=== PATIENT | female | born 1945 | race Caucasian/White ===

== ENCOUNTER 2016-03-04 10:59 | Emergency (ER) | payer MEDICARE, MEDICAID ==
[2016-03-04 12:03] LABS: BASO % 0.3 % (0.0-1.0); EOS # 0.1 K/mm3 (0.0-0.50); LARGE UNSTAINED CELL # 0.1 K/mm3 (0.0-0.4); LARGE UNSTAINED CELL % 2.3 % (0.0-4.0); LYMPH # 1.3 K/mm3 (1.5-4.5); LYMPH % 24.4 % (24.0-44.0); MEAN CORPUSCULAR HEMOGLOBIN 31.8 pg (27.0-33.0); MEAN CORPUSCULAR HGB CONC 34.2 g/dl (32.0-36.5); MEAN CORPUSCULAR VOLUME 92.9 fl (80.0-96.0); MONO # 0.3 K/mm3 (0.0-0.8); NEUTROPHILS # 3.4 K/mm3 (1.8-7.7); PLATELET COUNT, AUTOMATED 250 k/mm3 (150-450); RED CELL DISTRIBUTION WIDTH 11.7 % (11.5-14.5); WHITE BLOOD COUNT 5.2 K/mm3 (4.0-10.0)
[2016-03-04 12:24] LABS: ANION GAP 9 MEQ/L (8-16); BLOOD UREA NITROGEN 17 MG/DL (7-18); CALCIUM LEVEL 9.6 MG/DL (8.8-10.2); CARBON DIOXIDE LEVEL 26 MEQ/L (21-32); CHLORIDE LEVEL 105 MEQ/L (98-107); GLOMERULAR FILTRATION RATE > 60.0 (>45); GLUCOSE, FASTING 101 MG/DL (80-110); POTASSIUM SERUM 4.5 MEQ/L (3.5-5.1); SODIUM LEVEL 140 MEQ/L (136-145)
[2016-03-04] MEDS ORDERED: ISOVUE-370 76% 100ML VIAL (Q9967) As Ordered ONE (14:01)
[2016-03-04] MEDS ORDERED: ASPIRIN 81 MG CHEW TABLET As Ordered ONE (15:03)
--- NOTE | 2016-03-04 15:39 | REP ---
Clinical: Bilateral pain and swelling with an acute shortness of breath . Technique: Cummings scale and color Doppler evaluation using linear high frequency transducer. Findings: Ultrasound examination of the right and left lower extremity deep venous structures from the common femoral vein to the popliteal vein demonstrates normal compressibility flow and wave patterns in response to respiration and augmentation. There is no evidence for deep venous thrombosis. Impression: No evidence for deep venous thrombosis. Signed by Checo Mckeon MD 03/04/2016 03:30 P
[2016-03-04] MEDS ORDERED: ENOXAPARIN 60 MG/0.6 ML SYR (J1650) As Ordered ONE (17:06)
--- NOTE | 2016-03-04 18:00 | EDDOCDS ---
Nurse's Notes [facility] Name: Shelli Puente Age: 71 yrs Sex: Female : 1945 Arrival Date: 03/04/2016 Time: 10:59 Bed 10 Private MD: Deion Sandoval A. Diagnosis: Other chest pain Presentation: 03/04 11:10 Presenting complaint: EMS states: patient was having chest pain while working at [employer]. Aspirin was not taken prior to arrival. Suicide/Homicide risk assessment- the patient denies having any suicidal and/or homicidal ideations and does not present with any other emotional, behavioral or mental health complaints. Status: Patient is not a service center specialist or dependent. Transition of care: patient was not received from another setting of care. Care prior to arrival: See EMS report. Saline lock initiated. Glucose check. 115. 11:10 Acuity: KAYLEE Level 2 [facility] 11:10 Method Of Arrival: Ambulance [facility] 11:27 Adult Sepsis Screening: The patient does not have new or worsening altered mentation. [facility] Patient's respiratory rate is less than 22. Systolic blood pressure is greater than 100. Patient has a qSOFA score of 0- Negative Sepsis Screen. Triage Assessment: 11:27 General: Appears comfortable, well developed, well nourished, well groomed, Behavior is kcs cooperative, pleasant. Pain: Denies pain. The patient is triaged at the bedside. See Assessment in Nurses Notes section of ED record. Neurological: Level of Consciousness is awake, alert. Cardiovascular: Rhythm is sinus rhythm No ectopy. Cardiovascular: very minimal bilasteral ankle swelling. Respiratory: Airway is patent Respiratory effort is even, unlabored, Respiratory pattern is regular, symmetrical, Breath sounds are clear bilaterally. Derm: Skin is intact, is healthy with good turgor, Skin is dry, Skin is normal. Historical: - Allergies: No known drug Allergies; - Home Meds: 1. Calcium/Vitamin D 600/400 mg daily 2. levothyroxine 75 mcg Oral tab 1 tab once daily 3. Amadeo Briceño Ultra Strength Topical twice a day as needed - PMHx: Thyroid problem; Mental retardation; - Social history: Smoking status: Patient states was never smoker of tobacco. No barriers to communication noted, The patient speaks fluent Bangladeshi. - Family history: Not pertinent. - : The pt / caregiver states he / she is not on anticoagulants. Home medication list is obtained from the facility MAR. - Exposure Risk Screening:: None identified. Screenin:54 Screening information is obtained from family members. Fall risk: No risks identified. kcs Assistance ADL's: requires no assistance with activities of daily living. Assistance ADL's: Requires assistance with meal preparation, this assistance is provided by residence staff, medication administration, assistance is provided by residence staff. Abuse/DV Screen: The patient / caregiver reports he/she is: not in a situation that causes fear, pain or injury. Nutritional screening: No deficits noted. Advance Directives: Unable to assess Advance Directive status due to pt condition. home support is adequate. Assessment: 12:43 Reassessment: Patient sitting up on stretcher - talking with family. Smiling and kcs pleasant. Denies pain.. 13:48 General: Patient eating lunch. kcs 15:59 Reassessment: Patient repositioned on stretcher. Still pain free. Pleasant and kcs cooperative. Respirations easy. Color = pink. Warm compresses to LAC. senior communications engineer = RSR. [facility] staff member at bedside.. 17:52 Reassessment: patient denies any pain or shortness of breath. [facility] staff aware that kcs patient is to return tomorrow for CT scan and re-eval.. General: Appears comfortable, well developed, well nourished, well groomed, Behavior is cooperative, pleasant. Pain: Denies pain. Neurological: Level of Consciousness is awake, alert. Cardiovascular: Rhythm is sinus rhythm No ectopy. Respiratory: Airway is patent Respiratory effort is even, unlabored, Respiratory pattern is regular, symmetrical. Derm: Skin is intact, is healthy with good turgor, Skin is dry, Skin is normal. 17:54 Reassessment: LAC with very slight firmness - no redness noted. Patient has had warm kcs compresses and arm elevated since return from CT.. Vital Signs: 11:14 BP 130 / 78 RA Sitting (auto/lg); Pulse 68; Resp 18; Temp 97.6(TE); Pulse Ox 97% on jrd R/A; Weight 79.38 kg (R); Height 5 ft. 4 in. (162.56 cm) (R); 11:28 BP 150 / 79 (auto/); kcs 11:28 Pulse 64 MON; Pulse Ox 99% ; kcs 12:28 BP 120 / 61 (auto/); kcs 12:29 Pulse 64 MON; Pulse Ox 98% ; kcs 14:53 BP 132 / 63 (auto/); kcs 14:53 Pulse 80 MON; Pulse Ox 97% ; kcs 15:23 BP 133 / 63 (auto/); kcs 15:23 Pulse 74 MON; Pulse Ox 98% ; kcs 15:53 BP 129 / 63 (auto/); kcs 15:53 Pulse 66 MON; Pulse Ox 97% ; kcs 16:23 BP 146 / 65 (auto/); kcs 16:23 Pulse 68 MON; Pulse Ox 94% ; kcs 16:53 BP 138 / 69 (auto/); kcs 16:53 Pulse 66 MON; Pulse Ox 96% ; kcs 17:23 BP 125 / 73 (auto/); kcs 17:23 Pulse 70 MON; Pulse Ox 97% ; kcs 17:54 BP 109 / 65; Pulse 65; Resp 20; Temp 98.0(O); Pulse Ox 95% on R/A; Pain 0/10; kcs 11:14 Body Mass Index 30.04 (79.38 kg, 162.56 cm) jrd Vitals: 11:27 Log In Time N/A - ambulance arrival. kcs ED Course: 11:00 Patient visited by Shelli Mckeon, Business Office Coordinator. lbd 11:00 Patient moved to Waiting lbd 11:01 Deion Sandoval is Private Physician. lbd 11:01 Patient moved to 10 dy 11:12 Triage Initiated kcs 11:13 EKG done. (by ED staff). Reviewed by Antonella Youssef MD. jrd 11:15 Patient visited by Levi Schultz PCA. jrd 11:17 Antonella Youssef MD is Attending Physician. sd1 11:17 Patient visited by Antonella Youssef MD. sd1 11:30 Maintain field IV. Gauge & site: #20 LAC. kcs 11:33 Patient visited by Alex Miranda PCA. jlf 11:51 Basic Metabolic Profile Sent. kcs 11:51 CBC with Diff Sent. kcs 11:51 Cardiac Injury Profile Sent. kcs 11:51 Troponin Sent. kcs 12:03 [facility] [place] Agreement was scanned into [employer] and attached to record. jp5 12:12 Patient visited by Alex Miranda PCA. jlf 12:54 Patient visited by Alex Miranda PCA. jlf 13:40 Patient visited by Alex Miranda PCA. jlf 14:14 Patient visited by Alex Miranda PCA. jlf 15:03 Patient visited by Levi Schultz PCA. jrd 15:03 EKG done. (by ED staff). Reviewed by Antonella Youssef MD. jrd 15:10 Patient moved to Ultrasound am17 15:19 Discontinued IV lock intact, bleeding controlled, pressure dressing applied, No kc3 redness/swelling at site. IV dc'd r/t iv infiltration during CT contrast administration. Dr. Mckeon and Dr. Nieves made aware. New orders placed and performed. Pt tolerated well. 15:20 Inserted saline lock: 20 gauge in right antecubital area and blood collected. The kc3 patient tolerated the procedure well. 15:27 Patient moved to 10 am17 16:13 US Lower Extremities Bilateral R/O DVT Returned. EDMS 16:44 Patient visited by Alex Miranda PCA. jlf 17:01 Linnea Agustin is Referral Physician. sd1 17:54 The patient / caregiver is instructed regarding the plan of care and ED course. Cardiac kcs monitor on. Pulse ox on. NIBP on. 17:54 Discontinued lock intact, bleeding controlled, pressure dressing applied, No kcs redness/swelling at site. No procedures done that require assistance. Administered Medications: 15:00 Drug: Aspirin 81 mg [aspirin 81 mg chewable tablet (1 tabs)] Route: PO; kc3 17:13 Drug: Enoxaparin (1.5 mg/kg) 119.07 mg {Co-Signature: víctor (Fadi Thurman RN).} {Note: kcs 60 mg given SC in each side of abdomen.} Route: Sub-Q; Site: abdomen; Order Results: Lab Order: Basic Metabolic Profile; SPEC'M 03/04/16 11:48 Test: GLUCOSE, FASTING; Value: 101; Range: 80-110; Units: MG/DL; Status: F Test: BLOOD UREA NITROGEN; Value: 17; Range: 7-18; Units: MG/DL; Status: F Test: CREATININE FOR GFR; Value: 0.70; Range: 0.55-1.02; Units: MG/DL; Status: F Test: GLOMERULAR FILTRATION RATE; Value: > 60.0; Range: >45; Status: F Test: SODIUM LEVEL; Value: 140; Range: 136-145; Units: MEQ/L; Status: F Test: POTASSIUM SERUM; Value: 4.5; Range: 3.5-5.1; Units: MEQ/L; Status: F Test: CHLORIDE LEVEL; Value: 105; Range: 98-107; Units: MEQ/L; Status: F Test: CARBON DIOXIDE LEVEL; Value: 26; Range: 21-32; Units: MEQ/L; Status: F Test: ANION GAP; Value: 9; Range: 8-16; Units: MEQ/L; Status: F Test: CALCIUM LEVEL; Value: 9.6; Range: 8.8-10.2; Units: MG/DL; Status: F Test Note: ; Units are mL/min/1.73 m2 Chronic Kidney Disease Staging per NKF: Stage I & II GFR >=60 Normal to Mildly Decreased Stage III GFR 30-59 Moderately Decreased Stage IV GFR 15-29 Severely Decreased Stage V GFR <15 Very Little GFR Left ESRD GFR <15 on AIR DIRECTOR Lab Order: CBC with Diff; SPEC'M 03/04/16 11:48 Test: WHITE BLOOD COUNT; Value: 5.2; Range: 4.0-10.0; Units: K/mm3; Status: F Test: RED BLOOD COUNT; Value: 4.45; Range: 4.00-5.40; Units: M/mm3; Status: F Test: HEMOGLOBIN; Value: 14.2; Range: 12.0-16.0; Units: g/dl; Status: F Test: HEMATOCRIT; Value: 41.4; Range: 36.0-47.0; Units: %; Status: F Test: MEAN CORPUSCULAR VOLUME; Value: 92.9; Range: 80.0-96.0; Units: fl; Status: F Test: MEAN CORPUSCULAR HEMOGLOBIN; Value: 31.8; Range: 27.0-33.0; Units: pg; Status: F Test: MEAN CORPUSCULAR HGB CONC; Value: 34.2; Range: 32.0-36.5; Units: g/dl; Status: F Test: RED CELL DISTRIBUTION WIDTH; Value: 11.7; Range: 11.5-14.5; Units: %; Status: F Test: PLATELET COUNT, AUTOMATED; Value: 250; Range: 150-450; Units: k/mm3; Status: F Test: NEUTROPHILS %; Value: 65.0; Range: 36.0-66.0; Units: %; Status: F Test: LYMPH %; Value: 24.4; Range: 24.0-44.0; Units: %; Status: F Test: MONO %; Value: 6.0; Range: 0.0-5.0; Abnormal: Above high normal; Units: %; Status: F Test: EOS %; Value: 2.0; Range: 0.0-3.0; Units: %; Status: F Test: BASO %; Value: 0.3; Range: 0.0-1.0; Units: %; Status: F Test: LARGE UNSTAINED CELL %; Value: 2.3; Range: 0.0-4.0; Units: %; Status: F Test: NEUTROPHILS #; Value: 3.4; Range: 1.8-7.7; Units: K/mm3; Status: F Test: LYMPH #; Value: 1.3; Range: 1.5-4.5; Abnormal: Below low normal; Units: K/mm3; Status: F Test: MONO #; Value: 0.3; Range: 0.0-0.8; Units: K/mm3; Status: F Test: EOS #; Value: 0.1; Range: 0.0-0.50; Units: K/mm3; Status: F Test: BASO #; Value: 0.0; Range: 0.0-0.2; Units: K/mm3; Status: F Test: LARGE UNSTAINED CELL #; Value: 0.1; Range: 0.0-0.4; Units: K/mm3; Status: F Lab Order: Cardiac Injury Profile; SPEC'M 03/04/16 11:48 Test: CPK CREATINE PHOSPHOKINASE; Value: 81; Range: 26-192; Units: U/L; Status: F Test: CK-MB VALUE MASS; Value: 1.2; Range: 0.0-3.6; Units: NG/ML; Status: F Test: MB/CK RELATIVE INDEX; Value: 1.48; Range: < OR =4; Status: F Test Note: ; DIAGNOSIS CRITERIA MMB ng/ml Relative Index (RI) NON-AMI < or = 5 N/A CUMMINGS ZONE > 5 < or = 4 AMI > 5 > 4 Lab Order: Troponin; SPEC' 03/04/16 11:48 Test: TROPONIN I; Value: < 0.02; Range: < 0.10; Units: NG/ML; Status: F Test Note: ; Troponin I Reference Interval for [email or web address] LOCI: 99th Percentile= 0.00-0.045 ng/ml Risk Stratification: <= 0.10 ng/ml Decreased Risk for Adverse Clinical Events. 0.10-1.50 ng/ml Increased Risk for Adverse Clinical Events. Evaluation of additional criterion and/or repeat testing in 2-6 hours is suggested to rule out myocardial damage. >= 1.50 ng/ml Indicative of Myocardial Injury. Lab Order: D-Dimer Quant; SPEC' 03/04/16 11:48 Test: D-DIMER QUANT; Value: 535.4; Range: <500; Abnormal: Above high normal; Units: ng/ml; Status: F Lab Order: CARDIAC MARKER PANEL; [facility]' 03/04/16 15:03 Test: CPK CREATINE PHOSPHOKINASE; Value: 70; Range: 26-192; Units: U/L; Status: F Test: CK-MB VALUE MASS; Value: 1.0; Range: 0.0-3.6; Units: NG/ML; Status: F Test: MB/CK RELATIVE INDEX; Value: 1.42; Range: < OR =4; Status: F Test: TROPONIN I; Value: < 0.02; Range: < 0.10; Units: NG/ML; Status: F Test Note: ; DIAGNOSIS CRITERIA MMB ng/ml Relative Index (RI) NON-AMI < or = 5 N/A CUMMINGS ZONE > 5 < or = 4 AMI > 5 > 4 Radiology Order: US Lower Extremities Bilateral R/O DVT Test: US Lower Extremities Bilateral R/O DVT REASON FOR EXAMINATION: sob swelling; Clinical: Bilateral pain and swelling with an acute shortness of breath .; ; Technique: Cummings scale and color Doppler evaluation using linear high frequency; transducer.; ; Findings:; Ultrasound examination of the right and left lower extremity deep venous; structures from the common femoral vein to the popliteal vein demonstrates normal; compressibility flow and wave patterns in response to respiration and; augmentation. There is no evidence for deep venous thrombosis.; ; Impression:; No evidence for deep venous thrombosis.; ; ; Signed by; Checo Mckeon MD 03/04/2016 03:30 P; Outcome: 17:02 Discharge ordered by Provider. sd1 17:54 Discharge Assessment: Patient awake, alert and oriented x 3. No cognitive and/or kcs functional deficits noted. Patient verbalized understanding of disposition instructions. Patient awake and alert. patient administered narcotics - no. The following High Risk Discharge criteria are identified: None. Discharged to home via wheelchair, [facility] staff. Condition: stable. Discharge instructions given to patient, Instructed on discharge instructions, follow up and referral plans. Use of warm compresses to the affected area, Demonstrated understanding of instructions, Pt was receptive of discharge instructions/ teaching. CT Study completed. Ultrasound Study completed. Property sent home with patient. 17:59 Patient left the ED. kcs Signatures: Dispatcher [employer] EDMS Antonella Youssef MD MD sd1 Renita Vergara, RN RN kcs Shelli Mckeon, Business Office Coordinator Unit lbd Perez Hoffman, RN RN Alex Guajardo, SMOOTH [employer]UCCO RESURFACER SMOOTH STUCCO RESURFACER jlNilsa López am17 Levi Schultz, SMOOTH STUCCO RESURFACER SMOOTH STUCCO RESURFACER jrd Joseph Moulton jp5 Anuja Powell,CHEVY RN kc3 Fadi hanb MTDD
--- NOTE | 2016-03-04 18:00 | EDDOCDS ---
Physician Documentation [facility] Name: Shelli Puente Age: 71 yrs Sex: Female : 1945 Arrival Date: 03/04/2016 Time: 10:59 Bed 10 Private MD: Deion Sandoval A. Disposition: 03/04/16 17:02 Discharged to Home/Self Care. Impression: Other chest pain. - Condition is Stable. - Discharge Instructions: Angina Pectoris, Nonspecific Chest Pain, Chest Wall Pain, Costochondritis. - Work Release Form - 1 day, Medication Reconciliation, Local Pharmacy Hours form. - Follow up: Linnea Agustin; When: Call to arrange an appointment. Follow up: Emergency Department; When: Tomorrow. - Problem is new. - Symptoms are resolved. Historical: - Allergies: No known drug Allergies; - Home Meds: 1. Calcium/Vitamin D 600/400 mg daily 2. levothyroxine 75 mcg Oral tab 1 tab once daily 3. Amadeo Briceño Ultra Strength Topical twice a day as needed - PMHx: Thyroid problem; Mental retardation; - Social history: Smoking status: Patient states was never smoker of tobacco. No barriers to communication noted, The patient speaks fluent Azeri. - Family history: Not pertinent. - : The pt / caregiver states he / she is not on anticoagulants. Home medication list is obtained from the facility APR. - Exposure Risk Screening:: None identified. Vital Signs: 03/04 11:14 BP 130 / 78 RA Sitting (auto/lg); Pulse 68; Resp 18; Temp 97.6(TE); Pulse Ox 97% on jrd R/A; Weight 79.38 kg / 175 lbs (R); Height 5 ft. 4 in. (162.56 cm) (R); 11:28 BP 150 / 79 (auto/); kcs 11:28 Pulse 64 MON; Pulse Ox 99% ; kcs 12:28 BP 120 / 61 (auto/); kcs 12:29 Pulse 64 MON; Pulse Ox 98% ; kcs 14:53 BP 132 / 63 (auto/); kcs 14:53 Pulse 80 MON; Pulse Ox 97% ; kcs 15:23 BP 133 / 63 (auto/); kcs 15:23 Pulse 74 MON; Pulse Ox 98% ; kcs 15:53 BP 129 / 63 (auto/); kcs 15:53 Pulse 66 MON; Pulse Ox 97% ; kcs 16:23 BP 146 / 65 (auto/); kcs 16:23 Pulse 68 MON; Pulse Ox 94% ; kcs 16:53 BP 138 / 69 (auto/); kcs 16:53 Pulse 66 MON; Pulse Ox 96% ; kcs 17:23 BP 125 / 73 (auto/); kcs 17:23 Pulse 70 MON; Pulse Ox 97% ; kcs 17:54 BP 109 / 65; Pulse 65; Resp 20; Temp 98.0(O); Pulse Ox 95% on R/A; Pain 0/10; kcs 11:14 Body Mass Index 30.04 (79.38 kg, 162.56 cm) jrd MDM: 11:01 [employer] Crewmember/Pulse Ox/q 30 min VS ordered. sd1 11:01 IV Saline Lock ordered. sd1 11:01 Rhythm Strip to chart ordered. sd1 11:01 Undress patient appropriately for examination ordered. sd1 11:03 ECG WITH READING ER PHYS+CARDIAG ordered. EDMS 11:03 Basic Metabolic Profile Ordered. EDMS 11:03 CBC with Diff Ordered. EDMS 11:03 Cardiac Injury Profile Ordered. EDMS 11:03 Troponin Ordered. EDMS 11:03 portable chest Ordered. EDMS 12:03 [facility] Payment Agreement was scanned into [employer] and attached to record. jp5 12:03 Financial registration complete. jp5 12:27 CBC with Diff Reviewed. sd1 12:27 Basic Metabolic Profile Reviewed. sd1 12:27 Cardiac Injury Profile Reviewed. sd1 12:27 Troponin Reviewed. sd1 12:39 Redraw CIP &Troponin (put time in details section) ordered. sd1 12:39 Repeat EKG (put time details section) ordered. sd1 12:39 REGULAR+DIET ordered. EDMS 12:39 D-Dimer Quant Ordered. EDMS 12:49 Repeat EKG (put time details section) complete. lbd 12:49 Redraw CIP &Troponin (put time in details section) complete. lbd 12:52 ECG WITH READING ER PHYS ordered. EDMS 12:52 CARDIAC MARKER PANEL Ordered. EDMS 13:48 D-Dimer Quant Reviewed. sd1 13:57 CT Chest Angio R/O PE Ordered. EDMS 14:20 Aspirin Chewable Tablet 81 mg PO once ordered. sd1 14:57 Misc. Nursing Order ordered. sd1 15:05 US Lower Extremities Bilateral R/O DVT Ordered. EDMS 15:51 CARDIAC MARKER PANEL Reviewed. sd1 16:41 US Lower Extremities Bilateral R/O DVT Reviewed. sd1 16:48 Enoxaparin (1.5 mg/kg) 1.5 mg/kg Sub-Q once; Ensure no Heparin in past 6hrs. lovenox sd1 120mg SQ ordered. Administered Medications: 15:00 Drug: Aspirin 81 mg [aspirin 81 mg chewable tablet (1 tabs)] Route: PO; kc3 17:13 Drug: Enoxaparin (1.5 mg/kg) 119.07 mg {Co-Signature: jmb (Fadi Thurman RN).} {Note: kcs 60 mg given SC in each side of abdomen.} Route: Sub-Q; Site: abdomen; Signatures: Dispatcher [employer] EDMS Antonella Youssef MD MD sd1 Renita Vergara, RN RN kcs Shelli Mckeon, Consumer Safety Officer Unit lbd Joseph Moulton jp5 Anuja Powell RN kc3 Fadi renee The chart was reviewed and I authenticate all verbal orders and agree with the evaluation and treatment provided.Corrections: (The following items were deleted from the chart) 11:45 11:03 ECG WITH READING ER PHYS+CARDIAG ordered. EDMS EDMS Attachments: 12:03 [facility] Payment Agreement jp5 MTDD
--- NOTE | 2016-03-04 19:59 | ECGEPIP ---
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
--- NOTE | 2016-03-04 20:04 | ECGEPIP ---
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
--- NOTE | 2016-03-04 22:38 | REP ---
AP portable upright chest radiograph 03/04/2016 Indication: Chest pain Comparison: Cardiomediastinal silhouette is normal. Lungs are clear bilaterally. There are moderate to advanced degenerative changes in thoracic spine, with lateral bridging marginal osteophytes at multiple levels. Soft tissues are within normal limits. Impression: No acute cardiopulmonary process. Moderate to advanced degenerative changes in the thoracic spine Signed by Kathryn Hernandez MD 03/04/2016 10:29 P
--- NOTE | 2016-03-06 19:00 | EDDOCDS ---
Physician Documentation [facility] Name: Shelli Puente Age: 71 yrs Sex: Female : 1945 Arrival Date: 03/04/2016 Time: 10:59 Bed 10 Private MD: Deion Sandoval A. Disposition: 03/04/16 17:02 Discharged to Home/Self Care. Impression: Other chest pain. - Condition is Stable. - Discharge Instructions: Angina Pectoris, Nonspecific Chest Pain, Chest Wall Pain, Costochondritis. - Work Release Form - 1 day, Medication Reconciliation, Local Pharmacy Hours form. - Follow up: Linnea Agustin; When: Call to arrange an appointment. Follow up: Emergency Department; When: Tomorrow. - Problem is new. - Symptoms are resolved. Historical: - Allergies: No known drug Allergies; - Home Meds: 1. Calcium/Vitamin D 600/400 mg daily 2. levothyroxine 75 mcg Oral tab 1 tab once daily 3. Amadeo Briceño Ultra Strength Topical twice a day as needed - PMHx: Thyroid problem; Mental retardation; - Social history: Smoking status: Patient states was never smoker of tobacco. No barriers to communication noted, The patient speaks fluent Italian. - Family history: Not pertinent. - : The pt / caregiver states he / she is not on anticoagulants. Home medication list is obtained from the facility APR. - Exposure Risk Screening:: None identified. Vital Signs: 03/04 11:14 BP 130 / 78 RA Sitting (auto/lg); Pulse 68; Resp 18; Temp 97.6(TE); Pulse Ox 97% on jrd R/A; Weight 79.38 kg / 175 lbs (R); Height 5 ft. 4 in. (162.56 cm) (R); 11:28 BP 150 / 79 (auto/); kcs 11:28 Pulse 64 MON; Pulse Ox 99% ; kcs 12:28 BP 120 / 61 (auto/); kcs 12:29 Pulse 64 MON; Pulse Ox 98% ; kcs 14:53 BP 132 / 63 (auto/); kcs 14:53 Pulse 80 MON; Pulse Ox 97% ; kcs 15:23 BP 133 / 63 (auto/); kcs 15:23 Pulse 74 MON; Pulse Ox 98% ; kcs 15:53 BP 129 / 63 (auto/); kcs 15:53 Pulse 66 MON; Pulse Ox 97% ; kcs 16:23 BP 146 / 65 (auto/); kcs 16:23 Pulse 68 MON; Pulse Ox 94% ; kcs 16:53 BP 138 / 69 (auto/); kcs 16:53 Pulse 66 MON; Pulse Ox 96% ; kcs 17:23 BP 125 / 73 (auto/); kcs 17:23 Pulse 70 MON; Pulse Ox 97% ; kcs 17:54 BP 109 / 65; Pulse 65; Resp 20; Temp 98.0(O); Pulse Ox 95% on R/A; Pain 0/10; kcs 11:14 Body Mass Index 30.04 (79.38 kg, 162.56 cm) jrd MDM: 11:01 Enrollment Consultant/Pulse Ox/q 30 min VS ordered. sd1 11:01 IV Saline Lock ordered. sd1 11:01 Rhythm Strip to chart ordered. sd1 11:01 Undress patient appropriately for examination ordered. sd1 11:03 ECG WITH READING ER PHYS+CARDIAG ordered. EDMS 11:03 Basic Metabolic Profile Ordered. EDMS 11:03 CBC with Diff Ordered. EDMS 11:03 Cardiac Injury Profile Ordered. EDMS 11:03 Troponin Ordered. EDMS 11:03 portable chest Ordered. EDMS 12:03 [facility] Payment Agreement was scanned into [employer] and attached to record. jp5 12:03 Financial registration complete. jp5 12:27 CBC with Diff Reviewed. sd1 12:27 Basic Metabolic Profile Reviewed. sd1 12:27 Cardiac Injury Profile Reviewed. sd1 12:27 Troponin Reviewed. sd1 12:39 Redraw CIP &Troponin (put time in details section) ordered. sd1 12:39 Repeat EKG (put time details section) ordered. sd1 12:39 REGULAR+DIET ordered. EDMS 12:39 D-Dimer Quant Ordered. EDMS 12:49 Repeat EKG (put time details section) complete. lbd 12:49 Redraw CIP &Troponin (put time in details section) complete. lbd 12:52 ECG WITH READING ER PHYS ordered. EDMS 12:52 CARDIAC MARKER PANEL Ordered. EDMS 13:48 D-Dimer Quant Reviewed. sd1 13:57 CT Chest Angio R/O PE Ordered. EDMS 14:20 Aspirin Chewable Tablet 81 mg PO once ordered. sd1 14:57 Misc. Nursing Order ordered. sd1 15:05 US Lower Extremities Bilateral R/O DVT Ordered. EDMS 15:51 CARDIAC MARKER PANEL Reviewed. sd1 16:41 US Lower Extremities Bilateral R/O DVT Reviewed. sd1 16:48 Enoxaparin (1.5 mg/kg) 1.5 mg/kg Sub-Q once; Ensure no Heparin in past 6hrs. lovenox sd1 120mg SQ ordered. 03/05 10:58 T-Sheet-- Draft Copy was scanned into [employer] and attached to record. gb 10:58 ECG/EKG was scanned into [employer] and attached to record. gb 10:58 Trend VS was scanned into [employer] and attached to record. gb 10:59 Rhythm Strip was scanned into [employer] and attached to record. gb Administered Medications: 03/04 15:00 Drug: Aspirin 81 mg [aspirin 81 mg chewable tablet (1 tabs)] Route: PO; kc3 17:13 Drug: Enoxaparin (1.5 mg/kg) 119.07 mg {Co-Signature: víctor (Fadi Thurman RN).} {Note: kcs 60 mg given SC in each side of abdomen.} Route: Sub-Q; Site: abdomen; Signatures: Dispatcher [employer] EDMS Antonella Youssef MD MD sd1 Renita Vergara, RN RN kcs Shelli Mckeon, Gravity Prospecting Observer Unit lbd Lyly Webb, Reg Reg Joseph Alva jp5 Anuja Powell RN kc3 Fadi renee The chart was reviewed and I authenticate all verbal orders and agree with the evaluation and treatment provided.Corrections: (The following items were deleted from the chart) 11:45 11:03 ECG WITH READING ER PHYS+CARDIAG ordered. EDMS EDMS Attachments: 12:03 [place] [place] Agreement jp5 03/05 10:58 T-Sheet-- Draft Copy gb 10:58 ECG/EKG gb Chart Complete MTDD
--- NOTE | 2016-03-06 19:00 | EDDOCDS ---
Physician Documentation [facility] Name: Shelli Puente Age: 71 yrs Sex: Female : 1945 Arrival Date: 03/04/2016 Time: 10:59 Bed 10 Private MD: Deion Sandoval A. Disposition: 03/04/16 17:02 Discharged to Home/Self Care. Impression: Other chest pain. - Condition is Stable. - Discharge Instructions: Angina Pectoris, Nonspecific Chest Pain, Chest Wall Pain, Costochondritis. - Work Release Form - 1 day, Medication Reconciliation, Local Pharmacy Hours form. - Follow up: Linnea Agustin; When: Call to arrange an appointment. Follow up: Emergency Department; When: Tomorrow. - Problem is new. - Symptoms are resolved. Historical: - Allergies: No known drug Allergies; - Home Meds: 1. Calcium/Vitamin D 600/400 mg daily 2. levothyroxine 75 mcg Oral tab 1 tab once daily 3. Amadeo Briceño Ultra Strength Topical twice a day as needed - PMHx: Thyroid problem; Mental retardation; - Social history: Smoking status: Patient states was never smoker of tobacco. No barriers to communication noted, The patient speaks fluent Surinamese. - Family history: Not pertinent. - : The pt / caregiver states he / she is not on anticoagulants. Home medication list is obtained from the facility APR. - Exposure Risk Screening:: None identified. Vital Signs: 03/04 11:14 BP 130 / 78 RA Sitting (auto/lg); Pulse 68; Resp 18; Temp 97.6(TE); Pulse Ox 97% on jrd R/A; Weight 79.38 kg / 175 lbs (R); Height 5 ft. 4 in. (162.56 cm) (R); 11:28 BP 150 / 79 (auto/); kcs 11:28 Pulse 64 MON; Pulse Ox 99% ; kcs 12:28 BP 120 / 61 (auto/); kcs 12:29 Pulse 64 MON; Pulse Ox 98% ; kcs 14:53 BP 132 / 63 (auto/); kcs 14:53 Pulse 80 MON; Pulse Ox 97% ; kcs 15:23 BP 133 / 63 (auto/); kcs 15:23 Pulse 74 MON; Pulse Ox 98% ; kcs 15:53 BP 129 / 63 (auto/); kcs 15:53 Pulse 66 MON; Pulse Ox 97% ; kcs 16:23 BP 146 / 65 (auto/); kcs 16:23 Pulse 68 MON; Pulse Ox 94% ; kcs 16:53 BP 138 / 69 (auto/); kcs 16:53 Pulse 66 MON; Pulse Ox 96% ; kcs 17:23 BP 125 / 73 (auto/); kcs 17:23 Pulse 70 MON; Pulse Ox 97% ; kcs 17:54 BP 109 / 65; Pulse 65; Resp 20; Temp 98.0(O); Pulse Ox 95% on R/A; Pain 0/10; kcs 11:14 Body Mass Index 30.04 (79.38 kg, 162.56 cm) jrd MDM: 11:01 Java Developer Architect/Pulse Ox/q 30 min VS ordered. sd1 11:01 IV Saline Lock ordered. sd1 11:01 Rhythm Strip to chart ordered. sd1 11:01 Undress patient appropriately for examination ordered. sd1 11:03 ECG WITH READING ER PHYS+CARDIAG ordered. EDMS 11:03 Basic Metabolic Profile Ordered. EDMS 11:03 CBC with Diff Ordered. EDMS 11:03 Cardiac Injury Profile Ordered. EDMS 11:03 Troponin Ordered. EDMS 11:03 portable chest Ordered. EDMS 12:03 [facility] Payment Agreement was scanned into [employer] and attached to record. jp5 12:03 Financial registration complete. jp5 12:27 CBC with Diff Reviewed. sd1 12:27 Basic Metabolic Profile Reviewed. sd1 12:27 Cardiac Injury Profile Reviewed. sd1 12:27 Troponin Reviewed. sd1 12:39 Redraw CIP &Troponin (put time in details section) ordered. sd1 12:39 Repeat EKG (put time details section) ordered. sd1 12:39 REGULAR+DIET ordered. EDMS 12:39 D-Dimer Quant Ordered. EDMS 12:49 Repeat EKG (put time details section) complete. lbd 12:49 Redraw CIP &Troponin (put time in details section) complete. lbd 12:52 ECG WITH READING ER PHYS ordered. EDMS 12:52 CARDIAC MARKER PANEL Ordered. EDMS 13:48 D-Dimer Quant Reviewed. sd1 13:57 CT Chest Angio R/O PE Ordered. EDMS 14:20 Aspirin Chewable Tablet 81 mg PO once ordered. sd1 14:57 Misc. Nursing Order ordered. sd1 15:05 US Lower Extremities Bilateral R/O DVT Ordered. EDMS 15:51 CARDIAC MARKER PANEL Reviewed. sd1 16:41 US Lower Extremities Bilateral R/O DVT Reviewed. sd1 16:48 Enoxaparin (1.5 mg/kg) 1.5 mg/kg Sub-Q once; Ensure no Heparin in past 6hrs. lovenox sd1 120mg SQ ordered. 03/05 10:58 T-Sheet-- Draft Copy was scanned into [employer] and attached to record. gb 10:58 ECG/EKG was scanned into [employer] and attached to record. gb 10:58 Trend VS was scanned into [employer] and attached to record. gb 10:59 Rhythm Strip was scanned into [employer] and attached to record. gb Administered Medications: 03/04 15:00 Drug: Aspirin 81 mg [aspirin 81 mg chewable tablet (1 tabs)] Route: PO; kc3 17:13 Drug: Enoxaparin (1.5 mg/kg) 119.07 mg {Co-Signature: víctor (Fadi Thurman RN).} {Note: kcs 60 mg given SC in each side of abdomen.} Route: Sub-Q; Site: abdomen; Signatures: Dispatcher [employer] EDMS Antonella Youssef MD MD sd1 Renita Vergara, RN RN kcs Shelli Mckeon, Automobile Body Repairer Helper Unit lbd Lyly Webb, Reg Reg Joseph Alva jp5 Anuja Powell RN kc3 Fadi renee The chart was reviewed and I authenticate all verbal orders and agree with the evaluation and treatment provided.Corrections: (The following items were deleted from the chart) 11:45 11:03 ECG WITH READING ER PHYS+CARDIAG ordered. EDMS EDMS Attachments: 12:03 [facility] [place] Agreement jp5 03/05 10:58 T-Sheet-- Draft Copy gb 10:58 ECG/EKG gb Chart Complete MTDD
--- NOTE | 2016-03-06 19:00 | EDDOCDS ---
Nurse's Notes [facility] Name: Shelli Lynne Age: 71 yrs Sex: Female : 1945 Arrival Date: 03/04/2016 Time: 10:59 Bed 10 Private MD: Deion Sandoval A. Diagnosis: Other chest pain Presentation: 03/04 11:10 Presenting complaint: EMS states: patient was having chest pain while working at [employer]. Aspirin was not taken prior to arrival. Suicide/Homicide risk assessment- the patient denies having any suicidal and/or homicidal ideations and does not present with any other emotional, behavioral or mental health complaints. 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 Transition of care: patient was not received from another setting of care. Care prior to arrival: See EMS report. Saline lock initiated. Glucose check. 115. 11:10 Acuity: KAYLEE Level 2 [facility] 11:10 Method Of Arrival: Ambulance [facility] 11:27 Adult Sepsis Screening: The patient does not have new or worsening altered mentation. [facility] Patient's respiratory rate is less than 22. Systolic blood pressure is greater than 100. Patient has a qSOFA score of 0- Negative Sepsis Screen. Triage Assessment: 11:27 General: Appears comfortable, well developed, well nourished, well groomed, Behavior is kcs cooperative, pleasant. Pain: Denies pain. The patient is triaged at the bedside. See Assessment in Nurses Notes section of ED record. Neurological: Level of Consciousness is awake, alert. Cardiovascular: Rhythm is sinus rhythm No ectopy. Cardiovascular: very minimal bilasteral ankle swelling. Respiratory: Airway is patent Respiratory effort is even, unlabored, Respiratory pattern is regular, symmetrical, Breath sounds are clear bilaterally. Derm: Skin is intact, is healthy with good turgor, Skin is dry, Skin is normal. Historical: - Allergies: No known drug Allergies; - Home Meds: 1. Calcium/Vitamin D 600/400 mg daily 2. levothyroxine 75 mcg Oral tab 1 tab once daily 3. Amadeo Briceño Ultra Strength Topical twice a day as needed - PMHx: Thyroid problem; Mental retardation; - Social history: Smoking status: Patient states was never smoker of tobacco. No barriers to communication noted, The patient speaks fluent Cameroonian. - Family history: Not pertinent. - : The pt / caregiver states he / she is not on anticoagulants. Home medication list is obtained from the facility MAR. - Exposure Risk Screening:: None identified. Screenin:54 Screening information is obtained from family members. Fall risk: No risks identified. kcs Assistance ADL's: requires no assistance with activities of daily living. Assistance ADL's: Requires assistance with meal preparation, this assistance is provided by residence staff, medication administration, assistance is provided by residence staff. Abuse/DV Screen: The patient / caregiver reports he/she is: not in a situation that causes fear, pain or injury. Nutritional screening: No deficits noted. Advance Directives: Unable to assess Advance Directive status due to pt condition. home support is adequate. Assessment: 12:43 Reassessment: Patient sitting up on stretcher - talking with family. Smiling and kcs pleasant. Denies pain.. 13:48 General: Patient eating lunch. kcs 15:59 Reassessment: Patient repositioned on stretcher. Still pain free. Pleasant and kcs cooperative. Respirations easy. Color = pink. Warm compresses to LAC. shelter monitor = RSR. [facility] staff member at bedside.. 17:52 Reassessment: patient denies any pain or shortness of breath. [facility] staff aware that kcs patient is to return tomorrow for CT scan and re-eval.. General: Appears comfortable, well developed, well nourished, well groomed, Behavior is cooperative, pleasant. Pain: Denies pain. Neurological: Level of Consciousness is awake, alert. Cardiovascular: Rhythm is sinus rhythm No ectopy. Respiratory: Airway is patent Respiratory effort is even, unlabored, Respiratory pattern is regular, symmetrical. Derm: Skin is intact, is healthy with good turgor, Skin is dry, Skin is normal. 17:54 Reassessment: LAC with very slight firmness - no redness noted. Patient has had warm kcs compresses and arm elevated since return from CT.. Vital Signs: 11:14 BP 130 / 78 RA Sitting (auto/lg); Pulse 68; Resp 18; Temp 97.6(TE); Pulse Ox 97% on jrd R/A; Weight 79.38 kg (R); Height 5 ft. 4 in. (162.56 cm) (R); 11:28 BP 150 / 79 (auto/); kcs 11:28 Pulse 64 MON; Pulse Ox 99% ; kcs 12:28 BP 120 / 61 (auto/); kcs 12:29 Pulse 64 MON; Pulse Ox 98% ; kcs 14:53 BP 132 / 63 (auto/); kcs 14:53 Pulse 80 MON; Pulse Ox 97% ; kcs 15:23 BP 133 / 63 (auto/); kcs 15:23 Pulse 74 MON; Pulse Ox 98% ; kcs 15:53 BP 129 / 63 (auto/); kcs 15:53 Pulse 66 MON; Pulse Ox 97% ; kcs 16:23 BP 146 / 65 (auto/); kcs 16:23 Pulse 68 MON; Pulse Ox 94% ; kcs 16:53 BP 138 / 69 (auto/); kcs 16:53 Pulse 66 MON; Pulse Ox 96% ; kcs 17:23 BP 125 / 73 (auto/); kcs 17:23 Pulse 70 MON; Pulse Ox 97% ; kcs 17:54 BP 109 / 65; Pulse 65; Resp 20; Temp 98.0(O); Pulse Ox 95% on R/A; Pain 0/10; kcs 11:14 Body Mass Index 30.04 (79.38 kg, 162.56 cm) jrd Vitals: 11:27 Log In Time N/A - ambulance arrival. kcs ED Course: 11:00 Patient visited by Shelli Mckeon, Integration Architect. lbd 11:00 Patient moved to Waiting lbd 11:01 Deion Sandoval is Private Physician. lbd 11:01 Patient moved to 10 dy 11:12 Triage Initiated kcs 11:13 EKG done. (by ED staff). Reviewed by Antonella Youssef MD. jrd 11:15 Patient visited by Levi Schultz PCA. jrd 11:17 Antonella Youssef MD is Attending Physician. sd1 11:17 Patient visited by Antonella Youssef MD. sd1 11:30 Maintain field IV. Gauge & site: #20 LAC. kcs 11:33 Patient visited by Alex Miranda PCA. jlf 11:51 Basic Metabolic Profile Sent. kcs 11:51 CBC with Diff Sent. kcs 11:51 Cardiac Injury Profile Sent. kcs 11:51 Troponin Sent. kcs 12:03 [facility] Payment Agreement was scanned into [employer] and attached to record. jp5 12:12 Patient visited by Alex Miranda PCA. jlf 12:54 Patient visited by Alex Miranda PCA. jlf 13:40 Patient visited by Alex Miranda PCA. jlf 14:14 Patient visited by Alex Miranda PCA. jlf 15:03 Patient visited by Levi Schultz PCA. jrd 15:03 EKG done. (by ED staff). Reviewed by Antonella Youssef MD. jrd 15:10 Patient moved to Ultrasound am17 15:19 Discontinued IV lock intact, bleeding controlled, pressure dressing applied, No kc3 redness/swelling at site. IV dc'd r/t iv infiltration during CT contrast administration. Dr. Mckeon and Dr. Nieves made aware. New orders placed and performed. Pt tolerated well. 15:20 Inserted saline lock: 20 gauge in right antecubital area and blood collected. The kc3 patient tolerated the procedure well. 15:27 Patient moved to 10 am17 16:13 US Lower Extremities Bilateral R/O DVT Returned. EDMS 16:44 Patient visited by Alex Miranda PCA. jlf 17:01 Linnea Agustin is Referral Physician. sd1 17:54 The patient / caregiver is instructed regarding the plan of care and ED course. Cardiac kcs monitor on. Pulse ox on. NIBP on. 17:54 Discontinued lock intact, bleeding controlled, pressure dressing applied, No kcs redness/swelling at site. No procedures done that require assistance. 20:25 EKG-ADULT Returned. EDMS 20:25 ECG WITH READING ER PHYS Returned. EDMS 22:47 portable chest Returned. EDMS 03/05 10:58 T-Sheet-- Draft Copy was scanned into [employer] and attached to record. gb 10:58 ECG/EKG was scanned into [employer] and attached to record. gb 10:58 Trend VS was scanned into [employer] and attached to record. gb 10:59 Rhythm Strip was scanned into [employer] and attached to record. gb Administered Medications: 03/04 15:00 Drug: Aspirin 81 mg [aspirin 81 mg chewable tablet (1 tabs)] Route: PO; kc3 17:13 Drug: Enoxaparin (1.5 mg/kg) 119.07 mg {Co-Signature: víctor (Fadi Thurman RN).} {Note: kcs 60 mg given SC in each side of abdomen.} Route: Sub-Q; Site: abdomen; Attachments: 10:58 Trend VS gb 10:59 Rhythm Strip gb Order Results: Lab Order: Basic Metabolic Profile; SPEC'M 03/04/16 11:48 Test: GLUCOSE, FASTING; Value: 101; Range: 80-110; Units: MG/DL; Status: F Test: BLOOD UREA NITROGEN; Value: 17; Range: 7-18; Units: MG/DL; Status: F Test: CREATININE FOR GFR; Value: 0.70; Range: 0.55-1.02; Units: MG/DL; Status: F Test: GLOMERULAR FILTRATION RATE; Value: > 60.0; Range: >45; Status: F Test: SODIUM LEVEL; Value: 140; Range: 136-145; Units: MEQ/L; Status: F Test: POTASSIUM SERUM; Value: 4.5; Range: 3.5-5.1; Units: MEQ/L; Status: F Test: CHLORIDE LEVEL; Value: 105; Range: 98-107; Units: MEQ/L; Status: F Test: CARBON DIOXIDE LEVEL; Value: 26; Range: 21-32; Units: MEQ/L; Status: F Test: ANION GAP; Value: 9; Range: 8-16; Units: MEQ/L; Status: F Test: CALCIUM LEVEL; Value: 9.6; Range: 8.8-10.2; Units: MG/DL; Status: F Test Note: ; Units are mL/min/1.73 m2 Chronic Kidney Disease Staging per NKF: Stage I & II GFR >=60 Normal to Mildly Decreased Stage III GFR 30-59 Moderately Decreased Stage IV GFR 15-29 Severely Decreased Stage V GFR <15 Very Little GFR Left ESRD GFR <15 on FORMULA CHECKER Lab Order: CBC with Diff; SPEC'M 03/04/16 11:48 Test: WHITE BLOOD COUNT; Value: 5.2; Range: 4.0-10.0; Units: K/mm3; Status: F Test: RED BLOOD COUNT; Value: 4.45; Range: 4.00-5.40; Units: M/mm3; Status: F Test: HEMOGLOBIN; Value: 14.2; Range: 12.0-16.0; Units: g/dl; Status: F Test: HEMATOCRIT; Value: 41.4; Range: 36.0-47.0; Units: %; Status: F Test: MEAN CORPUSCULAR VOLUME; Value: 92.9; Range: 80.0-96.0; Units: fl; Status: F Test: MEAN CORPUSCULAR HEMOGLOBIN; Value: 31.8; Range: 27.0-33.0; Units: pg; Status: F Test: MEAN CORPUSCULAR HGB CONC; Value: 34.2; Range: 32.0-36.5; Units: g/dl; Status: F Test: RED CELL DISTRIBUTION WIDTH; Value: 11.7; Range: 11.5-14.5; Units: %; Status: F Test: PLATELET COUNT, AUTOMATED; Value: 250; Range: 150-450; Units: k/mm3; Status: F Test: NEUTROPHILS %; Value: 65.0; Range: 36.0-66.0; Units: %; Status: F Test: LYMPH %; Value: 24.4; Range: 24.0-44.0; Units: %; Status: F Test: MONO %; Value: 6.0; Range: 0.0-5.0; Abnormal: Above high normal; Units: %; Status: F Test: EOS %; Value: 2.0; Range: 0.0-3.0; Units: %; Status: F Test: BASO %; Value: 0.3; Range: 0.0-1.0; Units: %; Status: F Test: LARGE UNSTAINED CELL %; Value: 2.3; Range: 0.0-4.0; Units: %; Status: F Test: NEUTROPHILS #; Value: 3.4; Range: 1.8-7.7; Units: K/mm3; Status: F Test: LYMPH #; Value: 1.3; Range: 1.5-4.5; Abnormal: Below low normal; Units: K/mm3; Status: F Test: MONO #; Value: 0.3; Range: 0.0-0.8; Units: K/mm3; Status: F Test: EOS #; Value: 0.1; Range: 0.0-0.50; Units: K/mm3; Status: F Test: BASO #; Value: 0.0; Range: 0.0-0.2; Units: K/mm3; Status: F Test: LARGE UNSTAINED CELL #; Value: 0.1; Range: 0.0-0.4; Units: K/mm3; Status: F Lab Order: Cardiac Injury Profile; [facility] 03/04/16 11:48 Test: CPK CREATINE PHOSPHOKINASE; Value: 81; Range: 26-192; Units: U/L; Status: F Test: CK-MB VALUE MASS; Value: 1.2; Range: 0.0-3.6; Units: NG/ML; Status: F Test: MB/CK RELATIVE INDEX; Value: 1.48; Range: < OR =4; Status: F Test Note: ; DIAGNOSIS CRITERIA MMB ng/ml Relative Index (RI) NON-AMI < or = 5 N/A [place]UM[place]INGS ZONE > 5 < or = 4 AMI > 5 > 4 Lab Order: Troponin; [facility] 03/04/16 11:48 Test: TROPONIN I; Value: < 0.02; Range: < 0.10; Units: NG/ML; Status: F Test Note: ; Troponin I Reference Interval for [employer] LOCI: 99th Percentile= 0.00-0.045 ng/ml Risk Stratification: <= 0.10 ng/ml Decreased Risk for Adverse Clinical Events. 0.10-1.50 ng/ml Increased Risk for Adverse Clinical Events. Evaluation of additional criterion and/or repeat testing in 2-6 hours is suggested to rule out myocardial damage. >= 1.50 ng/ml Indicative of Myocardial Injury. Lab Order: D-Dimer Quant; [facility] 03/04/16 11:48 Test: D-DIMER QUANT; Value: 535.4; Range: <500; Abnormal: Above high normal; Units: ng/ml; Status: F Lab Order: CARDIAC MARKER PANEL; [facility] 03/04/16 15:03 Test: CPK CREATINE PHOSPHOKINASE; Value: 70; Range: 26-192; Units: U/L; Status: F Test: CK-MB VALUE MASS; Value: 1.0; Range: 0.0-3.6; Units: NG/ML; Status: F Test: MB/CK RELATIVE INDEX; Value: 1.42; Range: < OR =4; Status: F Test: TROPONIN I; Value: < 0.02; Range: < 0.10; Units: NG/ML; Status: F Test Note: ; DIAGNOSIS CRITERIA MMB ng/ml Relative Index (RI) NON-AMI < or = 5 N/A CUMMINGS ZONE > 5 < or = 4 AMI > 5 > 4 Radiology Order: EKG-ADULT Test: EKG-ADULT REASON FOR EXAMINATION: Chest Pain; Stationary ECG Study; [facility] ED; ; Test Date: 2016-03-04; Pat Name: SHELLI LYNNE Department:; Room: -; Gender: F 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; : 1945 Requested By: Antonella Youssef; Order Number: [id number] Reading MD: Antonella Youssef; Measurements; Intervals [place]; Rate: 65 P: -2; TN: 139 QRS: -12; QRSD: 98 T: 2; QT: 385; QTc: 403; Interpretive Statements; SINUS RHYTHM; POSSIBLE RIGHT VENTRICULAR CONDUCTION DELAY; NO PRIOR FOR COMPARISON; Electronically Signed On 03-04-2016 19:59:06 EST by Antonella Youssef; Radiology Order: portable chest Test: portable chest REASON FOR EXAMINATION: Chest Pain; AP portable upright chest radiograph 03/04/2016; ; Indication: Chest pain; ; Comparison: Cardiomediastinal silhouette is normal. Lungs are clear; bilaterally. There are moderate to advanced degenerative changes in thoracic; spine, with lateral bridging marginal osteophytes at multiple levels. 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; : 1945 Requested By: Antonella Youssef; Order Number: [id number] Reading MD: Antonella Youssef; Measurements; Intervals [place]; Rate: 81 P: 35; TN: 185 QRS: -20; QRSD: 84 T: -5; QT: 353; QTc: 411; Interpretive Statements; SINUS RHYTHM; MODERATE VOLTAGE CRITERIA FOR LVH, CONSIDER NORMAL VARIANT; INFERIOR MYOCARDIAL INFARCTION, PROBABLY OLD; RIGHT VENTRICULAR CONDUCTION DELAY; [facility] 03/04/16; Electronically Signed On 03-04-2016 20:04:37 EST by Antonella Youssef; Radiology Order: US Lower Extremities Bilateral R/O DVT Test: US Lower Extremities Bilateral R/O DVT REASON FOR EXAMINATION: sob swelling; Clinical: Bilateral pain and swelling with an acute shortness of breath .; ; Technique: Cummings scale and color Doppler evaluation using linear high frequency; transducer.; ; Findings:; Ultrasound examination of the right and left lower extremity deep venous; structures from the common femoral vein to the popliteal vein demonstrates normal; compressibility flow and wave patterns in response to respiration and; augmentation. There is no evidence for deep venous thrombosis.; ; Impression:; No evidence for deep venous thrombosis.; ; ; Signed by; Checo Mckeon MD 03/04/2016 03:30 P; Outcome: 03/04 17:02 Discharge ordered by Provider. sd1 17:54 Discharge Assessment: Patient awake, alert and oriented x 3. No cognitive and/or kcs functional deficits noted. Patient verbalized understanding of disposition instructions. Patient awake and alert. patient administered narcotics - no. The following High Risk Discharge criteria are identified: None. Discharged to home via wheelchair, [facility] staff. Condition: stable. Discharge instructions given to patient, Instructed on discharge instructions, follow up and referral plans. Use of warm compresses to the affected area, Demonstrated understanding of instructions, Pt was receptive of discharge instructions/ teaching. CT Study completed. Ultrasound Study completed. Property sent home with patient. 17:59 Patient left the ED. kcs Signatures: Dispatcher [employer] EDMS Antonella Youssef MD MD sd1 Renita Vergara, RN RN Shelli Cordoba, Integration Architect Unit lbd Lyly Webb, Reg Reg Perez Romero, RN Alex Kumari, NURSE EDUCATOR NURSE EDUCATOR jlNilsa López am17 Levi Schultz, NURSE EDUCATOR NURSE EDUCATOR jrJoseph Ramos jp5 Anuja Powell,RN RN kc3 Fadi Thurman RN jmb Chart Complete MTDD
== END 2016-03-04 17:59 | disposition home or self-care (01) ==
LOC: M ED 10:59
DX: R07.9 Chest pain, unspecified (principal); E07.9 Disorder of thyroid, unspecified; F79 Unspecified intellectual disabilities; Z79.899 Other long term (current) drug therapy
CPT/HCPCS: 36415; 71010; 71275; 80048; 82550; 82553; 84484; 85025; 85379; 93005; 93041; 93970; 96372; 99285; J1650; Q9967

== ENCOUNTER 2016-03-05 11:56 | Emergency (ER) | payer MEDICARE, MEDICAID ==
[2016-03-05] MEDS ORDERED: ISOVUE-370 76% 100ML VIAL (Q9967) As Ordered ONE (14:09)
--- NOTE | 2016-03-05 15:12 | REP ---
CT pulmonary angiogram: With IV contrast. History: Chest pain, shortness of breath, elevated D-dimer. Comparison studies: Study was attempted the previous day, however, contrast extravasation occurred and the patient was recalled to accomplish the exam on this date. Contrast dose: 75 cc's of Isovue [address] technique: Helical scanning is acquired and overlapping 1.5 mm and contiguous 3 mm axial images are reformatted. In addition, a 3-D work station is deployed to generate thick slab maximum intensity projection images in sagittal and coronal imaging projections. CT pulmonary angiographic findings: There is good opacification of the pulmonary arterial tree and there is no CT evidence of pulmonary embolism. Maximum intensity projection images show no vessel cutoff or filling defect to suggest an embolus. Thoracic aorta enhances homogeneously and is somewhat tortuous and calcific. No aneurysm or dissection is seen. There is a minimal ductus bump with calcification. The lung romero are clear. No pulmonary mass or infiltrate is seen. There is no evidence of pleural effusion or pericardial effusion. No adrenal lesion is seen. There is a large densely calcified gallstone in the gallbladder. There is a 1.5 cm right renal cyst. No bony destructive lesion is seen. Impression: 1. No CT evidence of pulmonary embolus. 2. Cholelithiasis with a large densely calcified gallstone. 3. Small right renal cyst. Signed by Adán Thibodeaux MD 03/05/2016 04:49 P
--- NOTE | 2016-03-05 15:43 | EDDOCDS ---
[facility] Name: Shelli Puente Age: 71 yrs Sex: Female : 1945 Arrival Date: 03/05/2016 Time: 11:56 Bed 30 Private MD: Unknown Pcp Diagnosis: Dyspnea, unspecified Presentation: 03/05 12:08 Presenting complaint: Patient states: Seen here with chest pain yesterday, instructed mlb1 to return for CT of chest today, unable to perform study yesterday. Adult Sepsis Screening: The patient does not have new or worsening altered mentation. Patient's respiratory rate is less than 22. Systolic blood pressure is greater than 100. Patient has a qSOFA score of 0- Negative Sepsis Screen. Suicide/Homicide risk assessment- the patient denies having any suicidal and/or homicidal ideations and does not present with any other emotional, behavioral or mental health complaints. Status: Patient is not a taxi servicer or dependent. Transition of care: patient was not received from another setting of care. 12:08 Acuity: KAYLEE Level 3 mlb1 12:08 Method Of Arrival: Walkin/Carried/Asstd mlb1 Triage Assessment: 12:10 General: Appears in no apparent distress, comfortable, Behavior is appropriate for age, mlb1 cooperative. Pain: Denies pain. Neurological: No deficits noted. Respiratory: Denies shortness of breath. Historical: - Allergies: no known allergies; - Home Meds: 1. Amadeo Briceño Ultra Strength Topical twice a day as needed 2. Calcium/Vitamin D 600/400 mg daily 3. levothyroxine 75 mcg Oral tab 1 tab once daily - PMHx: mental retardation; Thyroid problem; - PSHx: none; - Social history: Smoking status: Patient states former smoker of tobacco. No barriers to communication noted, The patient speaks fluent Latvian, Speaks appropriately for age. - Family history: No immediate family members are acutely ill. - : The pt / caregiver states he / she is not on anticoagulants. Home medication list is obtained from the patient. - Exposure Risk Screening:: None identified. Screenin:45 Screening information is obtained from the patient. Fall risk: No risks identified. mb9 Assistance ADL's: requires no assistance with activities of daily living. Abuse/DV Screen: The patient / caregiver reports he/she is: not in a situation that causes fear, pain or injury. Nutritional screening: No deficits noted. Advance Directives: There is no active DNR order. home support is adequate. Assessment: 13:45 General: Appears in no apparent distress, comfortable, Behavior is appropriate for age, mb9 cooperative. Pain: Denies pain. Respiratory: Airway is patent Respiratory effort is even, unlabored. Vital Signs: 11:58 BP 157 / 77; Pulse 72; Resp 16; Temp 97.9(O); Pulse Ox 98% ; Weight 79.38 kg; Height 5 cmb ft. 4 in. (162.56 cm); Pain 0/10; 11:58 Body Mass Index 30.04 (79.38 kg, 162.56 cm) cmb Vitals: 11:58 Log In Time: March 05, 2016 at 11:56. cmb ED Course: 11:58 Patient visited by Brianna Whitley. cmb 11:58 Unknown Pcp is Private Physician. cmb 11:58 Patient moved to Waiting cmb 11:59 Patient moved to Pre RCE cmb 12:07 Patient visited by Antonio Khoury, [place]. mlb1 12:09 Triage Initiated mlb1 12:11 Patient visited by Antonio Khoury, [place]. mlb1 12:38 Patient moved to Triage 1 rs6 12:48 [facility] F[facility] ke 12:48 Patient visited by Rj Fraire FNP. ke 12:48 Patient visited by Rj Fraire FNP. ke 12:59 Patient moved to 30 jf3 13:19 Patient visited by Rj Fraire FNP. ke 13:45 The patient / caregiver is instructed regarding the plan of care and ED course. mb9 13:45 Inserted saline lock: 20 gauge in right antecubital area. mb9 13:55 Patient visited by Rj Fraire FNP. ke 14:35 Patient visited by Rj Fraire FNP. ke 14:50 [place] [place] Agreement was scanned into [employer] and attached to record. pm4 Order Results: There are currently no results for this order. Outcome: 14:59 Discharge ordered by Provider. ke 15:42 Patient left the ED. mb9 Signatures: Rj Fraire FNP FNP ke Barney, Michael B, RN RN mlb1 Boshart, [place] cmb Antonio Lala,RN RN mb9 Aurelia Darling, RODENT EXTERMINATOR RODENT EXTERMINATOR rs6 Hank Givens,RN RN jf3 Lev Zamora, Reg Reg pm4 MTDD
--- NOTE | 2016-03-05 15:43 | EDDOCDS ---
Physician Documentation [facility] Name: Shelli Puente Age: 71 yrs Sex: Female : 1945 Arrival Date: 03/05/2016 Time: 11:56 Bed 30 Private MD: Unknown Pcp Disposition: 03/05/16 14:59 Discharged to Home/Self Care. Impression: Dyspnea, unspecified. - Condition is Stable. - Discharge Instructions: Shortness of Breath. - Medication Reconciliation, Local Pharmacy Hours form. - Follow up: Private Physician; When: As needed; Reason: Continuance of care. - Problem is an ongoing problem. - Symptoms have improved. Historical: - Allergies: no known allergies; - Home Meds: 1. Amadeo Briceño Ultra Strength Topical twice a day as needed 2. Calcium/Vitamin D 600/400 mg daily 3. levothyroxine 75 mcg Oral tab 1 tab once daily - PMHx: mental retardation; Thyroid problem; - PSHx: none; - Social history: Smoking status: Patient states former smoker of tobacco. No barriers to communication noted, The patient speaks fluent Swedish, Speaks appropriately for age. - Family history: No immediate family members are acutely ill. - : The pt / caregiver states he / she is not on anticoagulants. Home medication list is obtained from the patient. - Exposure Risk Screening:: None identified. Vital Signs: 03/05 11:58 BP 157 / 77; Pulse 72; Resp 16; Temp 97.9(O); Pulse Ox 98% ; Weight 79.38 kg / 175 lbs; cmb Height 5 ft. 4 in. (162.56 cm); Pain 0/10; 11:58 Body Mass Index 30.04 (79.38 kg, 162.56 cm) cmb MDM: 12:54 IV Saline Lock ordered. ke 12:54 CT Chest Angio R/O PE Ordered. EDMS 13:58 Financial registration complete. pm4 14:50 [facility] [place] Payment Agreement was scanned into [employer] and attached to record. pm4 Signatures: Dispatcher [employer] EDMS Rj Fraire, PHARMACY DIRECTOR PHARMACY DIRECTOR Antonio Ramirez RN RN mlb1 Antonio LalaRN RN mb9 Lev Zamora, Reg Reg pm4 The chart was reviewed and I authenticate all verbal orders and agree with the evaluation and treatment provided.Attachments: 14:50 [facility] Payment Agreement pm4 MTDD
--- NOTE | 2016-03-07 16:43 | EDDOCDS ---
Nurse's Notes [facility] Name: Shelli Puente Age: 71 yrs Sex: Female : 1945 Arrival Date: 03/05/2016 Time: 11:56 Bed 30 Private MD: Unknown Pcp Diagnosis: Dyspnea, unspecified Presentation: 03/05 12:08 Presenting complaint: Patient states: Seen here with chest pain yesterday, instructed mlb1 to return for CT of chest today, unable to perform study yesterday. Adult Sepsis Screening: The patient does not have new or worsening altered mentation. Patient's respiratory rate is less than 22. Systolic blood pressure is greater than 100. Patient has a qSOFA score of 0- Negative Sepsis Screen. Suicide/Homicide risk assessment- the patient denies having any suicidal and/or homicidal ideations and does not present with any other emotional, behavioral or mental health complaints. Status: Patient is not a emergency medical services coordinator or dependent. Transition of care: patient was not received from another setting of care. 12:08 Acuity: KAYLEE Level 3 mlb1 12:08 Method Of Arrival: Walkin/Carried/Asstd mlb1 Triage Assessment: 12:10 General: Appears in no apparent distress, comfortable, Behavior is appropriate for age, mlb1 cooperative. Pain: Denies pain. Neurological: No deficits noted. Respiratory: Denies shortness of breath. Historical: - Allergies: no known allergies; - Home Meds: 1. Amadeo Briceño Ultra Strength Topical twice a day as needed 2. Calcium/Vitamin D 600/400 mg daily 3. levothyroxine 75 mcg Oral tab 1 tab once daily - PMHx: mental retardation; Thyroid problem; - PSHx: none; - Social history: Smoking status: Patient states former smoker of tobacco. No barriers to communication noted, The patient speaks fluent Kyrgyz, Speaks appropriately for age. - Family history: No immediate family members are acutely ill. - : The pt / caregiver states he / she is not on anticoagulants. Home medication list is obtained from the patient. - Exposure Risk Screening:: None identified. Screenin:45 Screening information is obtained from the patient. Fall risk: No risks identified. mb9 Assistance ADL's: requires no assistance with activities of daily living. Abuse/DV Screen: The patient / caregiver reports he/she is: not in a situation that causes fear, pain or injury. Nutritional screening: No deficits noted. Advance Directives: There is no active DNR order. home support is adequate. Assessment: 13:45 General: Appears in no apparent distress, comfortable, Behavior is appropriate for age, mb9 cooperative. Pain: Denies pain. Respiratory: Airway is patent Respiratory effort is even, unlabored. 15:40 Reassessment: Patient appears in no apparent distress at this time. Patient denies pain mb9 at this time. Patient states feeling better. Patient states symptoms have improved. Adult Sepsis Screening: The patient does not have new or worsening altered mentation. Patient's respiratory rate is less than 22. Systolic blood pressure is greater than 100. Patient has a qSOFA score of 0- Negative Sepsis Screen. General: Appears in no apparent distress, comfortable, Behavior is appropriate for age, cooperative. Respiratory: Airway is patent Respiratory effort is even, unlabored. Vital Signs: 11:58 BP 157 / 77; Pulse 72; Resp 16; Temp 97.9(O); Pulse Ox 98% ; Weight 79.38 kg; Height 5 cmb ft. 4 in. (162.56 cm); Pain 0/10; 15:40 BP 135 / 69; Pulse 56; Resp 17; Temp 98.3(T); Pulse Ox 99% on R/A; Pain 0/10; mb9 11:58 Body Mass Index 30.04 (79.38 kg, 162.56 cm) cmb Vitals: 11:58 Log In Time: March 05, 2016 at 11:56. cmb ED Course: 11:58 Patient visited by Brianna Whitley. cmb 11:58 Unknown Pcp is Private Physician. cmb 11:58 Patient moved to Waiting cmb 11:59 Patient moved to Pre RCE cmb 12:07 Patient visited by Antonio Khoury RN. mlb1 12:09 Triage Initiated mlb1 12:11 Patient visited by Antonio Khoury RN. mlb1 12:38 Patient moved to Triage 1 rs6 12:48 [facility] ke 12:48 Patient visited by Rj Fraire FNP. ke 12:48 Patient visited by Rj Fraire FNP. ke 12:59 Patient moved to 30 3 13:19 Patient visited by Rj Fraire FNP. ke 13:45 The patient / caregiver is instructed regarding the plan of care and ED course. mb9 13:45 Inserted saline lock: 20 gauge in right antecubital area. mb9 13:55 Patient visited by Rj Fraire FNP. ke 14:35 Patient visited by Rj Fraire FNP. ke 14:50 [facility] [place] Agreement was scanned into [employer] and attached to record. pm4 15:40 Discontinued IV lock intact, bleeding controlled, pressure dressing applied, No mb9 redness/swelling at site. No procedures done that require assistance. 16:10 CT Chest Angio R/O PE Returned. EDMS 03/06 10:50 T-Sheet-- Draft Copy was scanned into [employer] and attached to record. gb Order Results: Radiology Order: CT Chest Angio R/O PE Test: CT Chest Angio R/O PE REASON FOR EXAMINATION: Shortness of Breath; CT pulmonary angiogram: With IV contrast.; ; History: Chest pain, shortness of breath, elevated D-dimer.; ; Comparison studies: Study was attempted the previous day, however, contrast; extravasation occurred and the patient was recalled to accomplish the exam on; this date.; ; Contrast dose: 75 cc's of Isovue 370 are administered intravenously.; ; CT technique: Helical scanning is acquired and overlapping 1.5 mm and contiguous; 3 mm axial images are reformatted. In addition, a 3-D work station is deployed; to generate thick slab maximum intensity projection images in sagittal and; coronal imaging projections.; ; CT pulmonary angiographic findings: There is good opacification of the pulmonary; arterial tree and there is no CT evidence of pulmonary embolism. Maximum; intensity projection images show no vessel cutoff or filling defect to suggest an; embolus. Thoracic aorta enhances homogeneously and is somewhat tortuous and; calcific. No aneurysm or dissection is seen. There is a minimal ductus bump; with calcification. The lung romero are clear. No pulmonary mass or infiltrate; is seen.; ; There is no evidence of pleural effusion or pericardial effusion. No adrenal; lesion is seen. There is a large densely calcified gallstone in the gallbladder.; There is a 1.5 cm right renal cyst. No bony destructive lesion is seen.; ; Impression:; ; 1. No CT evidence of pulmonary embolus.; ; 2. Cholelithiasis with a large densely calcified gallstone.; ; 3. Small right renal cyst.; ; ; Signed by; Adán Thibodeaux MD 03/05/2016 04:49 P; Outcome: 03/05 14:59 Discharge ordered by Provider. dina 15:40 Discharge Assessment: Patient awake, alert and oriented x 3. No cognitive and/or mb9 functional deficits noted. Patient verbalized understanding of disposition instructions. patient administered narcotics - no. The following High Risk Discharge criteria are identified: None. Discharged to home ambulatory, with family. Condition: good Condition: stable Condition: improved. Discharge instructions given to patient, family, Instructed on discharge instructions, follow up and referral plans. medication usage, Demonstrated understanding of instructions, Pt was receptive of discharge instructions/ teaching. No special radiology studies were completed. Property :Personal belongings accompany Pt. 15:42 Patient left the ED. mb9 Signatures: Dispatcher [employer] EDMS Lyly Webb, Reg Reg gb Rj Fraire, CUTTER GRINDER OPERATOR CUTTER GRINDER OPERATOR Antonio Ramirez RN RN mlb1 Brianna Whitley Michael,RN RN mb9 Aurelia Darling, AMERICANIZATION TEACHER AMERICANIZATION TEACHER rs6 Hank Gievns,RN RN jf3 Lev Zamora, Reg Reg pm4 Chart Complete MTDD
--- NOTE | 2016-03-07 16:43 | EDDOCDS ---
Physician Documentation [facility] Name: Shelli Puente Age: 71 yrs Sex: Female : 1945 Arrival Date: 03/05/2016 Time: 11:56 Bed 30 Private MD: Unknown Pcp Disposition: 03/05/16 14:59 Discharged to Home/Self Care. Impression: Dyspnea, unspecified. - Condition is Stable. - Discharge Instructions: Shortness of Breath. - Medication Reconciliation, Local Pharmacy Hours form. - Follow up: Private Physician; When: As needed; Reason: Continuance of care. - Problem is an ongoing problem. - Symptoms have improved. Historical: - Allergies: no known allergies; - Home Meds: 1. Amadeo Briceño Ultra Strength Topical twice a day as needed 2. Calcium/Vitamin D 600/400 mg daily 3. levothyroxine 75 mcg Oral tab 1 tab once daily - PMHx: mental retardation; Thyroid problem; - PSHx: none; - Social history: Smoking status: Patient states former smoker of tobacco. No barriers to communication noted, The patient speaks fluent Romansh, Speaks appropriately for age. - Family history: No immediate family members are acutely ill. - : The pt / caregiver states he / she is not on anticoagulants. Home medication list is obtained from the patient. - Exposure Risk Screening:: None identified. Vital Signs: 03/05 11:58 BP 157 / 77; Pulse 72; Resp 16; Temp 97.9(O); Pulse Ox 98% ; Weight 79.38 kg / 175 lbs; cmb Height 5 ft. 4 in. (162.56 cm); Pain 0/10; 15:40 BP 135 / 69; Pulse 56; Resp 17; Temp 98.3(T); Pulse Ox 99% on R/A; Pain 0/10; mb9 11:58 Body Mass Index 30.04 (79.38 kg, 162.56 cm) cmb MDM: 12:54 IV Saline Lock ordered. ke 12:54 CT Chest Angio R/O PE Ordered. EDMS 13:58 Financial registration complete. pm4 14:50 [facility] Payment Agreement was scanned into [employer] and attached to record. pm4 03/06 10:50 T-Sheet-- Draft Copy was scanned into [employer] and attached to record. gb Signatures: Dispatcher [employer] EDMS Lyly Webb, Reg Reg gb Rj Fraire, ORNAMENTAL IRONWORKER ORNAMENTAL IRONWORKER Antonio Ramirez RN RN mlb1 Antonio Lala RN RN mb9 Lev Zamora, Reg Reg pm4 The chart was reviewed and I authenticate all verbal orders and agree with the evaluation and treatment provided.Attachments: 03/05 14:50 [facility] Payment Agreement pm4 03/06 10:50 T-Sheet-- Draft Copy gb Chart Complete MTDD
--- NOTE | 2016-03-07 16:43 | EDDOCDS ---
Physician Documentation [facility] Name: Shelli Puente Age: 71 yrs Sex: Female : 1945 Arrival Date: 03/05/2016 Time: 11:56 Bed 30 Private MD: Unknown Pcp Disposition: 03/05/16 14:59 Discharged to Home/Self Care. Impression: Dyspnea, unspecified. - Condition is Stable. - Discharge Instructions: Shortness of Breath. - Medication Reconciliation, Local Pharmacy Hours form. - Follow up: Private Physician; When: As needed; Reason: Continuance of care. - Problem is an ongoing problem. - Symptoms have improved. Historical: - Allergies: no known allergies; - Home Meds: 1. Amadeo Briceño Ultra Strength Topical twice a day as needed 2. Calcium/Vitamin D 600/400 mg daily 3. levothyroxine 75 mcg Oral tab 1 tab once daily - PMHx: mental retardation; Thyroid problem; - PSHx: none; - Social history: Smoking status: Patient states former smoker of tobacco. No barriers to communication noted, The patient speaks fluent Ukrainian, Speaks appropriately for age. - Family history: No immediate family members are acutely ill. - : The pt / caregiver states he / she is not on anticoagulants. Home medication list is obtained from the patient. - Exposure Risk Screening:: None identified. Vital Signs: 03/05 11:58 BP 157 / 77; Pulse 72; Resp 16; Temp 97.9(O); Pulse Ox 98% ; Weight 79.38 kg / 175 lbs; cmb Height 5 ft. 4 in. (162.56 cm); Pain 0/10; 15:40 BP 135 / 69; Pulse 56; Resp 17; Temp 98.3(T); Pulse Ox 99% on R/A; Pain 0/10; mb9 11:58 Body Mass Index 30.04 (79.38 kg, 162.56 cm) cmb MDM: 12:54 IV Saline Lock ordered. ke 12:54 CT Chest Angio R/O PE Ordered. EDMS 13:58 Financial registration complete. pm4 14:50 [facility] Payment Agreement was scanned into [employer] and attached to record. pm4 03/06 10:50 T-Sheet-- Draft Copy was scanned into [employer] and attached to record. gb Signatures: Dispatcher [employer] EDMS Lyly Webb, Reg Reg gb Rj Fraire, PAPER ROLL MACHINE OPERATOR PAPER ROLL MACHINE OPERATOR Antonio Ramirez RN RN mlb1 Antonio Lala RN RN mb9 Lev Zamora, Reg Reg pm4 The chart was reviewed and I authenticate all verbal orders and agree with the evaluation and treatment provided.Attachments: 03/05 14:50 [facility] Payment Agreement pm4 03/06 10:50 T-Sheet-- Draft Copy gb Chart Complete MTDD
== END 2016-03-05 15:42 | disposition home or self-care (01) ==
LOC: M ED 11:56
DX: R06.02 Shortness of breath (principal); F79 Unspecified intellectual disabilities; E07.9 Disorder of thyroid, unspecified; Z87.891 Personal history of nicotine dependence; Z79.899 Other long term (current) drug therapy
CPT/HCPCS: 71275; 99283; Q9967

== ENCOUNTER → 2016-04-01 | Outpatient (CLI) | payer MEDICARE, MEDICAID ==
--- NOTE | 2016-04-02 10:08 | DEXA ---
AP SPINE L1 - L4 1.180 -0.1 1.0 LT FEMUR TOTAL 0.902 -0.8 0.2 RT FEMUR TOTAL 0.868 -1.1 -0.1 TOTAL BODY TOTAL OTHER DUAL FEMUR FRAX* ASSESSMENT Risk factors: None. 10 year probability of fracture Major osteoporotic fracture 10.9 % Hip fracture 1.9 % COMMENTS: Normal bone densitometry of the spine. There is low bone density of the hips. The density of the spine has increased 2.9% since the initial exam on 05/2009. The spine density has decreased 6.3% since the most recent exam on 09/2013. The density of the left hip has increased 4.3% since the initial exam on 05/2009. The density of the left hip has decreased 1.0% since the most recent exam on 2013. The density of the right hip has decreased 3.3% since the initial exam on 2009. The density of the right hip has decreased 2.5% since the most recent exam on 2013. FOLLOW-UP: Recommendation for the next bone density exam: 2 years. YOKASTA
== END ==
LOC: M WHC 11:31
PROVIDERS: ATTEND Family Medicine
DX: Z13.820 Encounter for screening for osteoporosis (principal); M81.0 Age-related osteoporosis without current pathological fracture; Z79.899 Other long term (current) drug therapy

== ENCOUNTER → 2016-07-15 | Outpatient (REF) | payer MEDICARE, MEDICAID ==
[2016-07-15 20:50] LABS: MEAN CORPUSCULAR HEMOGLOBIN 32.5 pg (27.0-33.0); MEAN CORPUSCULAR VOLUME 95.5 fl (80.0-96.0); RED CELL DISTRIBUTION WIDTH 12.3 % (11.5-14.5); WHITE BLOOD COUNT 6.2 K/mm3 (4.0-10.0)
[2016-07-15 20:57] LABS: ALBUMIN 3.6 GM/DL (3.2-5.2); ALKALINE PHOSPHATASE 87 U/L (45-117); ALT/SGPT 108 U/L (12-78); ANION GAP 7 MEQ/L (8-16); AST/SGOT 52 U/L (15-37); BILIRUBIN,TOTAL 0.4 MG/DL (0.2-1.0); BLOOD UREA NITROGEN 20 MG/DL (7-18); CARBON DIOXIDE LEVEL 30 MEQ/L (21-32); CHLORIDE LEVEL 102 MEQ/L (98-107); CREATININE FOR GFR 0.75 MG/DL (0.55-1.02); GLOMERULAR FILTRATION RATE > 60.0 (>45); GLUCOSE, FASTING 99 MG/DL (80-110); POTASSIUM SERUM 4.4 MEQ/L (3.5-5.1); SODIUM LEVEL 139 MEQ/L (136-145); TOTAL PROTEIN 7.2 GM/DL (6.4-8.2)
== END ==
LOC: M SFHCLERA 15:09
PROVIDERS: ATTEND Family Medicine
DX: E11.9 Type 2 diabetes mellitus without complications (principal)
CPT/HCPCS: 80053; 82043; 83036; 85027; G0463

== ENCOUNTER → 2016-11-20 | Outpatient (REF) | payer MEDICARE, MEDICAID ==
[2016-11-20 12:39] LABS: ALBUMIN 3.6 GM/DL (3.2-5.2); ALBUMIN/GLOBULIN RATIO 0.97 (1.00-1.93); ALKALINE PHOSPHATASE 75 U/L (45-117); ALT/SGPT 71 U/L (12-78); ANION GAP 3 MEQ/L (8-16); AST/SGOT 40 U/L (15-37); BILIRUBIN,TOTAL 0.6 MG/DL (0.2-1.0); BLOOD UREA NITROGEN 20 MG/DL (7-18); CALCIUM LEVEL 9.1 MG/DL (8.8-10.2); CARBON DIOXIDE LEVEL 31 MEQ/L (21-32); CHLORIDE LEVEL 103 MEQ/L (98-107); CREATININE FOR GFR 0.62 MG/DL (0.55-1.02); FREE T4 1.11 NG/DL (0.76-1.46); GLOMERULAR FILTRATION RATE > 60.0 (>45); GLUCOSE, FASTING 90 MG/DL (80-110); POTASSIUM SERUM 4.6 MEQ/L (3.5-5.1); SODIUM LEVEL 137 MEQ/L (136-145); TOTAL PROTEIN 7.3 GM/DL (6.4-8.2)
== END ==
LOC: M SFHCLERA 10:10
PROVIDERS: ATTEND Family Medicine
DX: E03.9 Hypothyroidism, unspecified (principal); E11.9 Type 2 diabetes mellitus without complications
CPT/HCPCS: 80053; 83036; 84439; 84443; G0463

== ENCOUNTER → 2017-01-06 | Outpatient (CLI) | payer MEDICARE, MEDICAID ==
--- NOTE | 2017-01-06 16:05 | REPMRS ---
Patient History The patient states she has not had a clinical breast exam in over a year. Patient is postmenopausal. No known family history of cancer. Digital Woman Screen Mammo: January 06, 2017 - Exam #: [id number] Bilateral CC and MLO view(s) were taken. Technologist: Letha Miles Technologist Prior study comparison: October 31, 2015, digital woman screen mammo performed at [facility] to [facility]. October 25, 2014, digital woman screen mammo performed at [facility] to [facility]. FINDINGS: There are scattered fibroglandular densities. There has been no change in the appearance of the mammogram from the prior studies. There is a mild amount of residual fibroglandular tissue which is fairly symmetric. There is no interval development of dominant mass, architectural distortion, or clustered microcalcification suggestive of malignancy. ASSESSMENT: BI-RADS/ACR category 1 mammogram. Negative. Recommendation Routine screening mammogram in 1 year (for women over age 40). This mammogram was interpreted with the aid of an FDA-approved computer-aided dectection system. Electronically Signed By: Rip Cummings MD 01/06/17 0005
== END ==
LOC: M WHC 14:52
PROVIDERS: ATTEND Family Medicine
DX: Z12.31 Encounter for screening mammogram for malignant neoplasm of breast (principal)

== ENCOUNTER → 2017-08-11 | Outpatient (REF) | payer MEDICARE, MEDICAID ==
[2017-08-11 20:37] LABS: ESTIMATED AVERAGE GLUCOSE 131 MG/DL (60-110); HEMOGLOBIN A1c 6.2 %
[2017-08-11 20:41] LABS: ALBUMIN/GLOBULIN RATIO 1.03 (1.00-1.93); ALKALINE PHOSPHATASE 88 U/L (45-117); ALT/SGPT 104 U/L (12-78); ANION GAP 8 MEQ/L (8-16); AST/SGOT 53 U/L (7-37); BILIRUBIN,TOTAL 0.5 MG/DL (0.2-1.0); BLOOD UREA NITROGEN 24 MG/DL (7-18); CALCIUM LEVEL 9.3 MG/DL (8.8-10.2); CARBON DIOXIDE LEVEL 28 MEQ/L (21-32); CHLORIDE LEVEL 104 MEQ/L (98-107); CREATININE FOR GFR 0.72 MG/DL (0.55-1.30); GLOMERULAR FILTRATION RATE > 60.0 (>39); GLUCOSE, FASTING 87 MG/DL (70-100); POTASSIUM SERUM 4.8 MEQ/L (3.5-5.1); SODIUM LEVEL 140 MEQ/L (136-145); TOTAL PROTEIN 7.9 GM/DL (6.4-8.2)
== END ==
LOC: M SFHCLERA 15:09
DX: R79.89 Other specified abnormal findings of blood chemistry (principal); R73.02 Impaired glucose tolerance (oral); E03.9 Hypothyroidism, unspecified
CPT/HCPCS: 84443

== ENCOUNTER → 2018-01-07 | Outpatient (CLI) | payer MEDICARE, MEDICAID | LOC: M WHC 12:54 | DX: Z12.31 Encounter for screening mammogram for malignant neoplasm of breast (principal); Z78.0 Asymptomatic menopausal state | CPT/HCPCS: 77067 ==

== ENCOUNTER → 2018-03-22 | Outpatient (REF) | payer MEDICARE, MEDICAID | LOC: M SFHCLERA 10:38 | PROVIDERS: ATTEND Family Medicine | DX: R73.02 Impaired glucose tolerance (oral) (principal); R94.5 Abnormal results of liver function studies; E03.9 Hypothyroidism, unspecified ==

== ENCOUNTER → 2018-03-30 | Outpatient (CLI) | payer MEDICARE, MEDICAID ==
--- NOTE | 2018-04-02 15:52 | DEXA ---
AP SPINE L1 - L4 1.189 0.0 1.6 LT FEMUR TOTAL 0.852 -1.2 0.3 LT NECK 0.737 -2.2 -0.4 RT FEMUR TOTAL 0.859 -1.2 0.3 RT NECK 0.815 -1.6 0.1 TOTAL BODY TOTAL OTHER COMMENTS: Normal bone densitometry of the spine. There is low bone density of the hips. There is degenerative change in the spine which may artificially elevate the BMD The density of the spine is increased 3.7% since the initial exam on 06/07/2009. The spine density has increased 0.8% since the most recent exam on 04/01/2016. The density of the left hip has decreased 1.5% since the initial exam on 06/07/2009. The density of the left hip has decreased 5.5% since the most recent exam on 04/01/2016. The density of the right hip has decreased 4.3% since the initial exam on 06/07/2009. The density of the right hip has decreased 1.0% since the most recent exam on 04/01/2016. FOLLOW-UP: Recommendation for the next bone density exam: 2 years. YOKASTA
== END ==
LOC: M WHC 13:47
PROVIDERS: ATTEND Family Medicine
DX: Z13.820 Encounter for screening for osteoporosis (principal); M85.9 Disorder of bone density and structure, unspecified

== ENCOUNTER → 2018-09-03 | Outpatient (CLI) | payer MEDICARE, MEDICAID ==
[2018-09-03 13:31] LABS: ALBUMIN 3.7 GM/DL (3.2-5.2); ALT/SGPT 73 U/L (12-78); BILIRUBIN,TOTAL 0.6 MG/DL (0.2-1.0); BLOOD UREA NITROGEN 26 MG/DL (7-18); CALCIUM LEVEL 9.1 MG/DL (8.8-10.2); CARBON DIOXIDE LEVEL 30 MEQ/L (21-32); CHLORIDE LEVEL 107 MEQ/L (98-107); CREATININE FOR GFR 0.77 MG/DL (0.55-1.30); FERRITIN 252 NG/ML (8-252); GLOMERULAR FILTRATION RATE > 60.0 (>39); GLUCOSE, FASTING 99 MG/DL (70-100); POTASSIUM SERUM 4.6 MEQ/L (3.5-5.1); SODIUM LEVEL 141 MEQ/L (136-145); THYROID STIMULATING HORMONE 0.986 uIU/ML (0.358-3.740); TOTAL PROTEIN 7.6 GM/DL (6.4-8.2)
[2018-09-03 13:45] LABS: HEMOGLOBIN A1c 6.5 %
== END ==
LOC: M WUC 09:22
PROVIDERS: ATTEND Family Medicine
DX: R94.5 Abnormal results of liver function studies (principal); E03.9 Hypothyroidism, unspecified; R73.02 Impaired glucose tolerance (oral)

== ENCOUNTER → 2018-09-07 | Outpatient (REF) | payer MEDICARE, MEDICAID ==
[2018-09-07 16:36] LABS: CHOLESTEROL RISK RATIO 5.558 (<5)
[2018-09-07 17:05] LABS: CREATININE, URINE 47.7 MG/DL; MALB URINE SIEMENS 17.6 MG/L; MAU/CREAT RATIO 36.8 MCG/MG (0.0-30.0)
== END ==
LOC: M SFHCLERA 11:57
PROVIDERS: ATTEND Family Medicine
DX: E11.9 Type 2 diabetes mellitus without complications (principal)
CPT/HCPCS: 80061; 82043; G0463

== ENCOUNTER → 2019-03-12 | Outpatient (CLI) | payer MEDICARE, MEDICAID ==
[2019-03-12 13:23] LABS: ALBUMIN 3.6 GM/DL (3.2-5.2); ALT/SGPT 23 U/L (12-78); BILIRUBIN,TOTAL 0.6 MG/DL (0.2-1.0); BLOOD UREA NITROGEN 22 MG/DL (7-18); CARBON DIOXIDE LEVEL 27 MEQ/L (21-32); CHLORIDE LEVEL 105 MEQ/L (98-107); CHOLESTEROL LEVEL 97 MG/DL (<200); CHOLESTEROL RISK RATIO 3.129 (<5); CREATININE FOR GFR 0.67 MG/DL (0.55-1.30); GLOMERULAR FILTRATION RATE > 60.0 (>39); GLUCOSE, FASTING 83 MG/DL (70-100); HDL CHOLESTEROL 31 MG/DL (>40); HEMOGLOBIN A1c 5.7 %; LDL CHOLESTEROL 45 MG/DL (<100); NON-HDL-C 66 MG/DL; POTASSIUM SERUM 4.8 MEQ/L (3.5-5.1); SODIUM LEVEL 139 MEQ/L (136-145); THYROID STIMULATING HORMONE 0.848 uIU/ML (0.358-3.740); TOTAL PROTEIN 7.3 GM/DL (6.4-8.2); TRIGLYCERIDES LEVEL 105 MG/DL (<150)
== END ==
LOC: M WUC 09:05
PROVIDERS: ATTEND Family Medicine
DX: E11.9 Type 2 diabetes mellitus without complications (principal); E03.9 Hypothyroidism, unspecified; I10 Essential (primary) hypertension

== ENCOUNTER → 2019-03-17 | Outpatient (REF) | payer MEDICARE, MEDICAID ==
[2019-03-17 18:18] LABS: CREATININE, URINE 29.2 MG/DL; MALB URINE SIEMENS 10.8 MG/L; MAU/CREAT RATIO 36.9 MCG/MG (0.0-30.0)
== END ==
LOC: M SFHCLERA 13:36
PROVIDERS: ATTEND Family Medicine
DX: E11.9 Type 2 diabetes mellitus without complications (principal)
CPT/HCPCS: 82043; G0463

== ENCOUNTER → 2019-04-25 | Outpatient (CLI) | payer MEDICARE, MEDICAID ==
--- NOTE | 2019-04-25 17:36 | REPMRS ---
Patient History The patient states she had a clinical breast exam in April 2019. No known family history of cancer. No Hormone Replacement Therapy Digital Woman Screen Mammo: April 25, 2019 - Exam #: [id number] Bilateral CC and MLO view(s) were taken. Technologist: Nadya Buchanan, Technologist Prior study comparison: January 07, 2018, bilateral digital woman screen mammo performed at [facility]. January 06, 2017, digital woman screen mammo performed at [facility]. October 31, 2015, digital woman screen mammo performed at [facility]. FINDINGS: There are scattered fibroglandular densities. There has been no change in the appearance of the mammogram from the prior studies. There is a mild amount of scattered fibroglandular density which is fairly symmetric. There is no interval development of dominant mass, architectural distortion, or grouped microcalcification suggestive of malignancy. 3-D tomosynthesis shows no additional findings. Assessment: BI-RADS/ACR category 1 mammogram. Negative Mammogram. Recommendation Routine screening mammogram of both breasts in 1 year (for women over age 40). This patient's Lifetime Breast Cancer Risk is estimated at 3.1 %. This mammogram was interpreted with the aid of an FDA-approved computer-aided dectection system. Electronically Signed By: Grover Thibodeaux MD 04/25/19 [id number]
== END ==
LOC: M WHC 13:47
PROVIDERS: ATTEND Family Medicine
DX: Z12.31 Encounter for screening mammogram for malignant neoplasm of breast (principal)
CPT/HCPCS: 77063; 77067; G0463

== ENCOUNTER → 2019-09-01 | Outpatient (CLI) | payer MEDICARE, MEDICAID ==
[2019-09-01 14:16] LABS: ALBUMIN 3.8 GM/DL (3.2-5.2); ALT/SGPT 24 U/L (12-78); BILIRUBIN,TOTAL 0.6 MG/DL (0.2-1.0); BLOOD UREA NITROGEN 30 MG/DL (7-18); CALCIUM LEVEL 9.6 MG/DL (8.8-10.2); CARBON DIOXIDE LEVEL 28 MEQ/L (21-32); CHLORIDE LEVEL 107 MEQ/L (98-107); CHOLESTEROL LEVEL 124 MG/DL (<200); CHOLESTEROL RISK RATIO 3.757 (<5); CREATININE FOR GFR 0.72 MG/DL (0.55-1.30); GLOMERULAR FILTRATION RATE > 60.0 (>39); GLUCOSE, FASTING 82 MG/DL (70-100); HDL CHOLESTEROL 33 MG/DL (>40); LDL CHOLESTEROL 68 MG/DL (<100); NON-HDL-C 91 MG/DL; SODIUM LEVEL 141 MEQ/L (136-145); TOTAL PROTEIN 7.7 GM/DL (6.4-8.2); TRIGLYCERIDES LEVEL 116 MG/DL (<150)
[2019-09-01 15:40] LABS: HEMOGLOBIN A1c 5.8 %
== END ==
LOC: M WUC 09:56
PROVIDERS: ATTEND Family Medicine
DX: E11.9 Type 2 diabetes mellitus without complications (principal); I10 Essential (primary) hypertension; E03.9 Hypothyroidism, unspecified

== ENCOUNTER → 2020-04-27 | Outpatient (CLI) | payer MEDICARE, MEDICAID ==
[2020-04-27 12:34] LABS: BASO % 0.4 % (0.0-1.0); EOS # 0.2 10^3/uL (0.0-0.5); EOS % 3.7 % (0.0-3.0); HEMATOCRIT 35.5 % (36.0-47.0); HEMOGLOBIN 11.2 g/dl (12.0-15.5); LYMPH # 1.6 10^3/uL (1.5-5.0); LYMPH % 31.7 % (24.0-44.0); MEAN CORPUSCULAR HEMOGLOBIN 30.3 pg (27.0-33.0); MEAN CORPUSCULAR HGB CONC 31.5 g/dl (32.0-36.5); MEAN CORPUSCULAR VOLUME 95.9 fl (80.0-96.0); MONO # 0.5 10^3/uL (0.0-0.8); MONO % 10.1 % (2.0-8.0); NEUTROPHILS # 2.8 10^3/uL (1.5-8.5); NEUTROPHILS % 53.5 % (36.0-66.0); PLATELET COUNT, AUTOMATED 336 10^3/uL (150-450); WHITE BLOOD COUNT 5.2 10^3/uL (4.0-10.0)
[2020-04-27 13:08] LABS: HEMOGLOBIN A1c 5.7 %
[2020-04-27 13:13] LABS: BLOOD UREA NITROGEN 28 MG/DL (7-18); CALCIUM LEVEL 9.3 MG/DL (8.8-10.2); CARBON DIOXIDE LEVEL 31 MEQ/L (21-32); CHLORIDE LEVEL 107 MEQ/L (98-107); CHOLESTEROL LEVEL 123 MG/DL (<200); CHOLESTEROL RISK RATIO 3.236 (<5); CREATININE FOR GFR 0.72 MG/DL (0.55-1.30); GLOMERULAR FILTRATION RATE > 60.0 (>39); GLUCOSE, FASTING 100 MG/DL (70-100); HDL CHOLESTEROL 38 MG/DL (>40); LDL CHOLESTEROL 66 MG/DL (<100); NON-HDL-C 85 MG/DL; POTASSIUM SERUM 4.5 MEQ/L (3.5-5.1); SODIUM LEVEL 140 MEQ/L (136-145); TRIGLYCERIDES LEVEL 94 MG/DL (<150)
[2020-04-27 13:39] LABS: MAU/CREAT RATIO 243.1 MCG/MG (0.0-30.0)
== END ==
LOC: M WUC 09:29
PROVIDERS: ATTEND Family Medicine
DX: E03.9 Hypothyroidism, unspecified (principal); E11.9 Type 2 diabetes mellitus without complications

== ENCOUNTER → 2020-04-27 | Outpatient (CLI) | payer MEDICARE, MEDICAID ==
--- NOTE | 2020-04-27 12:26 | REPMRS ---
Patient History The patient states she has not had a clinical breast exam in over a year. No known family history of cancer. No Hormone Replacement Therapy 3D TOMOSYNTHESIS WAS PERFORMED. The Bk Tran lifetime risk for breast cancer is 2.9%. Volpara breast density b. Digital Woman Screen Mammo: April 27, 2020 - Exam #: [id number] Bilateral CC and MLO view(s) were taken. Technologist: Kady Schultz, Technologist Prior study comparison: April 25, 2019, bilateral digital woman screen mammo performed at [facility]. January 07, 2018, bilateral digital woman screen mammo performed at [facility]. FINDINGS: There are scattered fibroglandular densities. There has been no change in the appearance of the mammogram from the prior studies. There is a mild amount of residual fibroglandular tissue which is fairly symmetric. There is no interval development of dominant mass, architectural distortion, or clustered microcalcification suggestive of malignancy. Assessment: BI-RADS/ACR category 1 mammogram. Negative Mammogram. Recommendation Routine screening mammogram in 1 year (for women over age 40). This mammogram was interpreted with the aid of an FDA-approved computer-aided dectection system. Electronically Signed By: Rip Cummings MD 04/27/20 [id number]
--- NOTE | 2020-04-27 12:46 | DEXAMM ---
INDICATION: Z13.820 SCREENING FOR OSTEOPOROSIS. COMPARISON: 03/30/2018 as well as other prior exams. TECHNIQUE: Bone density was measured using dual-energy x-ray absorptiometry (DEXA). FINDINGS: AP SPINE L1-L4 BMD 1.152 g/cm2 Young Adult T-Score -0.3 Age Matched Z-Score 1.4. LT FEMUR, TOTAL BMD 0.847 g/cm2 Young Adult T-Score -1.3 Age Matched Z-Score 0.4. LT NECK BMD 0.755 g/cm2 Young Adult T-Score -2.0 Age Matched Z-Score -0.2. RT FEMUR, TOTAL BMD 0.840 g/cm2 Young Adult T-Score -1.3 Age Matched Z-Score 0.3. RT NECK BMD 0.787 g/cm2 Young Adult T-Score -1.8 Age Matched Z-Score 0.0. IMPRESSION: There is normal bone density of the spine. There is low bone density of the left hip. There is low bone density of the right hip. The density of the spine has increased 0.4% since the initial exam on 06/07/2009. The density of the spine decreased 3.1% since most recent exam on 03/30/2018. The density of the left hip has decreased 2.1% since initial exam on 06/07/2009. The density of the left hip has decreased 0.6% since most recent exam on 03/30/2018. The density of the right hip has decreased 6.5% since the initial exam on 06/07/2009. The density of the right hip has decreased 2.2% since the most recent exam on 03/30/2018. FOLLOW-UP: Recommendation for the next bone density exam: 2 years. <Electronically signed by Rip Cummings > 04/27/20 [id number]
== END ==
LOC: M WHC 11:11
PROVIDERS: ATTEND Family Medicine
DX: Z12.31 Encounter for screening mammogram for malignant neoplasm of breast (principal); Z13.820 Encounter for screening for osteoporosis; E03.9 Hypothyroidism, unspecified; E11.9 Type 2 diabetes mellitus without complications; Z78.0 Asymptomatic menopausal state

== ENCOUNTER → 2021-06-19 | Outpatient (CLI) | payer MEDICARE, MEDICAID ==
[2021-06-19 10:26] LABS: CREATININE, URINE 99.6 MG/DL; MALB URINE SIEMENS 28.8 MG/L; MAU/CREAT RATIO 28.9 MCG/MG (0.0-30.0)
[2021-06-19 10:35] LABS: BLOOD UREA NITROGEN 31 MG/DL (7-18); CALCIUM LEVEL 9.8 MG/DL (8.8-10.2); CARBON DIOXIDE LEVEL 28 MEQ/L (21-32); CHLORIDE LEVEL 106 MEQ/L (98-107); CHOLESTEROL LEVEL 120 MG/DL (<200); CHOLESTEROL RISK RATIO 3.636 (<5); CREATININE FOR GFR 0.62 MG/DL (0.55-1.30); GLOMERULAR FILTRATION RATE > 60.0 (>39); GLUCOSE, FASTING 97 MG/DL (70-100); HDL CHOLESTEROL 33 MG/DL (>40); LDL CHOLESTEROL 54 MG/DL (<100); NON-HDL-C 87 MG/DL; POTASSIUM SERUM 4.7 MEQ/L (3.5-5.1); SODIUM LEVEL 138 MEQ/L (136-145); TRIGLYCERIDES LEVEL 164 MG/DL (<150)
[2021-06-19 10:54] LABS: HEMOGLOBIN A1c 5.7 %
== END ==
LOC: M WUC 08:30
PROVIDERS: ATTEND Family Medicine
DX: E11.9 Type 2 diabetes mellitus without complications (principal); E03.9 Hypothyroidism, unspecified; E78.5 Hyperlipidemia, unspecified

== ENCOUNTER → 2021-06-24 | Outpatient (CLI) | payer MEDICARE, MEDICAID ==
[2021-06-24 12:38] LABS: BASO % 0.6 % (0.0-1.0); EOS # 0.1 10^3/uL (0.0-0.5); EOS % 1.8 % (0.0-3.0); HEMATOCRIT 35.3 % (36.0-47.0); HEMOGLOBIN 11.8 g/dl (12.0-15.5); LYMPH # 1.5 10^3/uL (1.5-5.0); MEAN CORPUSCULAR HGB CONC 33.4 g/dl (32.0-36.5); MEAN CORPUSCULAR VOLUME 95.7 fl (80.0-96.0); MONO # 0.6 10^3/uL (0.0-0.8); MONO % 12.6 % (2.0-8.0); NEUTROPHILS # 2.7 10^3/uL (1.5-8.5); NEUTROPHILS % 53.8 % (36.0-66.0); PLATELET COUNT, AUTOMATED 313 10^3/uL (150-450); RED BLOOD COUNT 3.69 10^6/uL (4.00-5.40); WHITE BLOOD COUNT 4.9 10^3/uL (4.0-10.0)
[2021-06-24 13:02] LABS: PERCENT SATURATION 18.5 % (13.2-45.0)
== END ==
LOC: M RAD 11:27
PROVIDERS: ATTEND Family Medicine
DX: R06.02 Shortness of breath (principal); I45.19 Other right bundle-branch block

== ENCOUNTER → 2022-03-19 | Outpatient (CLI) | payer MEDICARE, MEDICAID | LOC: M WHC 09:05 | PROVIDERS: ATTEND Nurse Practitioner Family | DX: Z12.31 Encounter for screening mammogram for malignant neoplasm of breast (principal); R92.2 Inconclusive mammogram ==

== ENCOUNTER → 2022-04-16 | Outpatient (CLI) | payer MEDICARE, MEDICAID | LOC: M WHC 09:22 | PROVIDERS: ATTEND Nurse Practitioner Family | DX: R92.8 Other abnormal and inconclusive findings on diagnostic imaging of breast (principal); N63.10 Unspecified lump in the right breast, unspecified quadrant | CPT/HCPCS: 76642; 77065; G0279 ==

== ENCOUNTER → 2022-04-22 | Outpatient (CLI) | payer MEDICARE, MEDICAID ==
[~2022-04-22] MED LIST: **SFHN** SODIUM BICARBONATE 8.4% 10MEQ 10ML VIAL ONE; ALPH0.156 OP; ATOR1TAB19 PO; CALC600T61 PO; ECOT81TA5 PO; LEVO75TA4 PO; LIDOCAINE 1% MDV 20ML VIAL ONE; LISI10TA22 PO; XALA0.007 OP
[2022-04-22 14:56] VITALS: BP 122/66
== END ==
LOC: M WHCPRO 13:12
PROVIDERS: ATTEND Nurse Practitioner Family
DX: R92.8 Other abnormal and inconclusive findings on diagnostic imaging of breast (principal); N63.10 Unspecified lump in the right breast, unspecified quadrant

== ENCOUNTER → 2022-05-05 | Outpatient (CLI) | payer MEDICARE, MEDICAID ==
[~2022-05-05] MED LIST changes: -**SFHN** SODIUM BICARBONATE 8.4% 10MEQ 10ML VIAL ONE; -LIDOCAINE 1% MDV 20ML VIAL ONE
== END ==
LOC: M WHC 11:05
PROVIDERS: ATTEND Family Medicine
DX: M19.90 Unspecified osteoarthritis, unspecified site (principal); M85.851 Other specified disorders of bone density and structure, right thigh; M85.852 Other specified disorders of bone density and structure, left thigh

== ENCOUNTER → 2022-07-30 | Outpatient (CLI) | payer MEDICARE, MEDICAID ==
[2022-07-30 09:42] LABS: BASO % 0.5 % (0.0-1.0); EOS # 0.1 10^3/uL (0.0-0.5); EOS % 3.4 % (0.0-3.0); HEMATOCRIT 36.9 % (36.0-47.0); LYMPH # 1.3 10^3/uL (1.5-5.0); LYMPH % 31.3 % (24.0-44.0); MEAN CORPUSCULAR HEMOGLOBIN 31.3 pg (27.0-33.0); MEAN CORPUSCULAR HGB CONC 32.5 g/dl (32.0-36.5); MEAN CORPUSCULAR VOLUME 96.3 fl (80.0-96.0); MONO # 0.5 10^3/uL (0.0-0.8); MONO % 10.9 % (2.0-8.0); NEUTROPHILS # 2.2 10^3/uL (1.5-8.5); NEUTROPHILS % 53.7 % (36.0-66.0); PLATELET COUNT, AUTOMATED 276 10^3/uL (150-450); RED BLOOD COUNT 3.83 10^6/uL (4.00-5.40); WHITE BLOOD COUNT 4.1 10^3/uL (4.0-10.0)
[2022-07-30 09:56] LABS: HEMOGLOBIN A1c 6.2 % (4.0-6.0)
[2022-07-30 10:13] LABS: ALBUMIN 3.6 G/DL (3.2-5.2); ALKALINE PHOSPHATASE 102 U/L (46-116); ALT/SGPT 40 U/L (7.0-40); AST/SGOT 27 U/L (<34); BILIRUBIN,TOTAL 0.6 MG/DL (0.3-1.2); BLOOD UREA NITROGEN 24 MG/DL (9-23); CALCIUM LEVEL 8.8 MG/DL (8.3-10.6); CARBON DIOXIDE LEVEL 28 MMOL/L (20-31); CHLORIDE LEVEL 106 MMOL/L (98-107); CHOLESTEROL LEVEL 108 MG/DL (<200); CHOLESTEROL RISK RATIO 3.76 (<5); GLOMERULAR FILTRATION RATE > 60.0 (>39); GLUCOSE, FASTING 110 MG/DL (74-106); HDL CHOLESTEROL 28.7 MG/DL (>40); LDL CHOLESTEROL 52.7 MG/DL (<100); NON-HDL-C 79.3 MG/DL; SODIUM LEVEL 139 MMOL/L (136-145); TRIGLYCERIDES LEVEL 133 MG/DL (<150)
[2022-07-30 10:15] LABS: THYROID STIMULATING HORMONE 1.506 uIU/ML (0.55-4.78)
== END ==
LOC: M WUC 08:10
PROVIDERS: ATTEND Family Medicine
DX: E03.9 Hypothyroidism, unspecified (principal); E78.5 Hyperlipidemia, unspecified; R73.03 Prediabetes

== ENCOUNTER → 2022-10-28 | Outpatient (CLI) | payer MEDICARE, MEDICAID | LOC: M WHC 09:34 | PROVIDERS: ATTEND Nurse Practitioner Women's Health | DX: D24.1 Benign neoplasm of right breast (principal) ==

== ENCOUNTER → 2023-03-26 | Outpatient (CLI) | payer MEDICARE, MEDICAID | LOC: M WHC 13:46 | PROVIDERS: ATTEND Nurse Practitioner Family | DX: Z12.31 Encounter for screening mammogram for malignant neoplasm of breast (principal) ==

== ENCOUNTER 2023-05-12 07:42 | Day surgery (SDC) | payer MEDICARE, MEDICAID ==
[~2023-05-12] VITALS: Ht 152.4 cm; Wt 79.3 kg
[2023-05-12] MEDS: NS 1,000 ML IV ONE (06:00)
[~2023-05-12 07:42] MED LIST changes: +CALC-356 PO; +LIDOCAINE 1% MDV 20ML VIAL As Ordered ONE; +dexmedeTOMIDine (4MCG/ML)200MCG/50ML BTL (PRECEDEX) As Ordered ONE; +propofoL 200 MG/20 ML VIAL As Ordered ONE
[2023-05-12] MEDS ORDERED: GLYCOPYRROLATE INJ 0.2 MG/ML 2 ML VIAL As Ordered ONE (08:48)
[2023-05-12 09:45] VITALS: TEMP 98.1
[2023-05-12 10:00] VITALS: BP 124/61; O2SAT 97
== END 2023-05-12 10:15 | disposition home or self-care (01) ==
LOC: M OPP 07:42
PROVIDERS: ATTEND Internal Medicine Gastroenterology
DX: Z12.11 Encounter for screening for malignant neoplasm of colon (principal); D12.0 Benign neoplasm of cecum; D12.2 Benign neoplasm of ascending colon; K64.8 Other hemorrhoids; K57.30 Diverticulosis of large intestine without perforation or abscess without bleeding; E03.9 Hypothyroidism, unspecified; E11.9 Type 2 diabetes mellitus without complications; Z79.02 Long term (current) use of antithrombotics/antiplatelets; Z79.82 Long term (current) use of aspirin; Z79.890 Hormone replacement therapy; Z79.899 Other long term (current) drug therapy

== ENCOUNTER → 2024-01-08 | Outpatient (CLI) | payer MEDICARE, MEDICAID ==
[~2024-01-08] MED LIST changes: -LIDOCAINE 1% MDV 20ML VIAL As Ordered ONE; -dexmedeTOMIDine (4MCG/ML)200MCG/50ML BTL (PRECEDEX) As Ordered ONE; -propofoL 200 MG/20 ML VIAL As Ordered ONE
[2024-01-08 11:37] LABS: ALBUMIN 3.6 G/DL (3.2-5.2); ALKALINE PHOSPHATASE 116 U/L (35-104); ALT/SGPT 97 U/L (7.0-40); AST/SGOT 63 U/L (<34); BILIRUBIN,TOTAL 0.8 MG/DL (0.3-1.2); BLOOD UREA NITROGEN 17 MG/DL (9-23); CALCIUM LEVEL 9.5 MG/DL (8.3-10.6); CARBON DIOXIDE LEVEL 29 MMOL/L (20-31); CHLORIDE LEVEL 104 MMOL/L (98-107); CHOLESTEROL LEVEL 128 MG/DL (<200); CHOLESTEROL RISK RATIO 4.03 (<5); CREATININE FOR GFR 0.68 MG/DL (0.55-1.30); GLOMERULAR FILTRATION RATE > 60.0 (>39); GLUCOSE, FASTING 129 MG/DL (74-106); HDL CHOLESTEROL 31.7 MG/DL (>40); LDL CHOLESTEROL 65.7 MG/DL (<100); NON-HDL-C 96.3 MG/DL; POTASSIUM SERUM 4.7 MMOL/L (3.5-5.1); SODIUM LEVEL 138 MMOL/L (136-145); TOTAL PROTEIN 7.6 G/DL (5.7-8.2); TRIGLYCERIDES LEVEL 153 MG/DL (<150)
[2024-01-08 11:38] LABS: THYROID STIMULATING HORMONE 0.934 uIU/ML (0.55-4.78)
[2024-01-08 11:53] LABS: HEMOGLOBIN A1c 6.4 % (4.0-6.0)
[2024-01-08 12:05] LABS: CREATININE, URINE 145.8 MG/DL; MAU/CREAT RATIO 8.2 MCG/MG (0.0-30.0)
== END ==
LOC: M WUC 08:10
PROVIDERS: ATTEND Family Medicine
DX: E11.9 Type 2 diabetes mellitus without complications (principal); E78.5 Hyperlipidemia, unspecified; E03.9 Hypothyroidism, unspecified

== ENCOUNTER → 2024-03-24 | Outpatient (CLI) | payer MEDICARE, MEDICAID | LOC: M WHC 07:30 | PROVIDERS: ATTEND Family Medicine | DX: R74.8 Abnormal levels of other serum enzymes (principal); K76.0 Fatty (change of) liver, not elsewhere classified; K80.20 Calculus of gallbladder without cholecystitis without obstruction ==

== ENCOUNTER 2024-11-14 08:41 | Outpatient (CLI) | payer MEDICARE, MEDICAID ==
[2024-11-14 13:59] LABS: BASO # 0.0 10^3/uL (0.0-0.2); BASO % 0.4 % (0.0-1.0); EOS # 0.1 10^3/uL (0.0-0.5); EOS % 2.2 % (0.0-3.0); LYMPH # 1.3 10^3/uL (1.5-5.0); LYMPH % 28.8 % (24.0-44.0); MONO # 0.4 10^3/uL (0.0-0.8); MONO % 8.2 % (2.0-8.0); NEUTROPHILS # 2.7 10^3/uL (1.5-8.5); NEUTROPHILS % 60.2 % (36.0-66.0); PLATELET COUNT, AUTOMATED 283 10^3/uL (150-450)
[2024-11-14 14:40] LABS: ALT/SGPT 91.0 U/L (7.0-40); AST/SGOT 91.0 U/L (<34); CALCIUM LEVEL 9.6 MG/DL (8.3-10.6); CARBON DIOXIDE LEVEL 27.0 MMOL/L (20-31); CHLORIDE LEVEL 101.0 MMOL/L (98-107); CREATININE FOR GFR 0.68 MG/DL (0.55-1.30); GLOMERULAR FILTRATION RATE 89.6 (>39); POTASSIUM SERUM 4.6 MMOL/L (3.5-5.1); SODIUM LEVEL 137.0 MMOL/L (136-145)
== END 2024-11-14 15:05 | disposition home or self-care (01) ==
LOC: M WUC 08:41
PROVIDERS: ATTEND Family Medicine
DX: K76.0 Fatty (change of) liver, not elsewhere classified (principal)

== ENCOUNTER → 2025-01-25 | Outpatient (CLI) | payer MEDICARE, MEDICAID | LOC: M WHC 09:56 | PROVIDERS: ATTEND Family Medicine | DX: M81.0 Age-related osteoporosis without current pathological fracture (principal) ==

== ENCOUNTER → 2025-02-10 | Outpatient (CLI) | payer MEDICARE, MEDICAID | LOC: M WHC 13:50 | PROVIDERS: ATTEND Nurse Practitioner Family | DX: Z12.31 Encounter for screening mammogram for malignant neoplasm of breast (principal); R92.323 Mammographic fibroglandular density, bilateral breasts ==